=== PATIENT | female | born 1950 | race Caucasian/White ===

== ENCOUNTER 2022-11-27 04:49 | Outpatient (CLI) | payer MEDICARE, MEDICAID, SELFPAY | END 2022-11-27 04:50 | disposition home or self-care (01) | LOC: AMB 12-04 16:00 | PROVIDERS: PCP Family Medicine; Visit Provider Emergency Medicine | DX: R07.89 Other chest pain (principal) | CPT/HCPCS: A0425; A0427 ==

== ENCOUNTER 2024-03-15 23:05 | Emergency (ER) | payer MEDICARE, MEDICAID, SELFPAY ==
[2024-03-15 23:05] VITALS: BP 128/70; PULSE 75; RESP 20; TEMP 36.1; O2SAT 96; BMI 46.3
--- NOTE | 2024-03-15 23:16 | CRLHL7_ITS ---
For Patients: As a result of the Century Cures Act, medical imaging exams and procedure reports are released immediately into your electronic medical record. You may view this report before your referring provider. If you have questions, please contact your health care provider. INDICATION: Head injury from Fall TECHNIQUE: CT Head without i.v. contrast. Coronal and sagittal reformats were obtained. COMPARISON: None FINDINGS: CSF space: Unremarkable for age. Brain: No evidence of mass, acute infarction or hemorrhage is seen. No mass-effect or midline shift is seen. Mild diffuse cortical atrophy is noted. The brain parenchyma is otherwise normal in appearance with preservation of the alva-white matter junction. Calvarium: The visualized paranasal sinuses are well aerated. The mastoid air cells are clear. The visualized orbits are grossly unremarkable. The calvarium is unremarkable in appearance with no fractures identified. IMPRESSION: 1. No evidence of acute infarction, intracranial hemorrhage, or mass-effect seen. Please note that all CT scans at this facility use dose modulation, iterative reconstruction, and/or weight-based dosing when appropriate to reduce radiation dose to as low as reasonably achievable. Dictated by: Valentín Wharton MD @ 03/15/2024 23:53:36 (Electronically Signed)
--- NOTE | 2024-03-15 23:16 | CRLHL7_ITS ---
For Patients: As a result of the Century Cures Act, medical imaging exams and procedure reports are released immediately into your electronic medical record. You may view this report before your referring provider. If you have questions, please contact your health care provider. Indication: Fall Technique: Frontal view of the pelvis and two views of the right hip Comparison: None Findings/Impression: No acute radiographic abnormality appreciated. Dictated by Tello Rader MD @ 03/15/2024 11:53:02 PM (Electronically Signed)
--- NOTE | 2024-03-15 23:16 | CRLHL7_ITS ---
For Patients: As a result of the Century Cures Act, medical imaging exams and procedure reports are released immediately into your electronic medical record. You may view this report before your referring provider. If you have questions, please contact your health care provider. INDICATION: Fall. TECHNIQUE: Noncontrast CT images of the cervical spine. COMPARISON: None. FINDINGS: Postsurgical changes of solid anterior fusion from C3 through C6. Cervical lordosis is maintained. Mild rightward cervical curvature. No acute fracture or traumatic subluxation. Grade 1 anterolisthesis of C6 on C7 and C7 on T1. Multilevel facet arthropathy. No spinal canal or neural foraminal stenosis. No concerning opacities in the lung apices. IMPRESSION: 1. No acute fracture or traumatic subluxation. 2. Postsurgical changes of solid anterior fusion from C3 through C6. Please note that all CT scans at this facility use dose modulation, iterative reconstruction, and/or weight-based dosing when appropriate to reduce radiation dose to as low as reasonably achievable. Dictated by Sarmad Curran MD @ 03/16/2024 8:22:16 AM (Electronically Signed)
--- NOTE | 2024-03-15 23:17 | ED_ITS ---
HPI - General Adult General Chief complaint: Fall/Minor Trauma Stated complaint: Fall Time Seen by Provider: 03/15/24 23:09 History of Present Illness HPI narrative: This 73-year-old female comes in by ambulance and a trauma team activation is initiated. She fell from standing night at home and believes that she fell into a table and then to the floor. She states that she did hit her head and thinks that she did lose consciousness. She is complaining of some head and neck pain and pain in her right hip region. She was unable to get up without help but did so with help and was able to bear weight. Related Data Allergies Allergy/AdvReac Type Severity Reaction Status Date / Time camphor (From [facility]oger Vaporub) Allergy Severe Seizure Verified 03/16/24 00:01 ethinyl estradiol (From Allergy Severe Verified 03/16/24 00:01 Seasonale (91)) eucalyptus (From Vicks Allergy Severe Seizure Verified 03/16/24 00:01 Vaporub) levonorgestrel (From Allergy Severe Verified 03/16/24 00:01 Seasonale (91)) menthol (From [facility] Vaporub) Allergy Severe Seizure Verified 03/16/24 00:01 petrolatum,white (From Vicks Allergy Severe Seizure Verified 03/16/24 00:01 Vaporub) turpentine oil (From Vicks Allergy Severe Seizure Verified 03/16/24 00:01 Vaporub) dobutamine Allergy Mild Gastrointestinal Verified 03/16/24 00:01 Upset erythromycin base Allergy Mild Rash Verified 03/16/24 00:01 gadopentetic acid (From Allergy Mild Rash Verified 03/16/24 00:01 Magnevist) Iodinated Contrast Media Allergy Mild Rash Verified 03/16/24 00:01 Latex, Natural Rubber Allergy Mild Rash Verified 03/16/24 00:01 NSAIDS (Non-Steroidal Allergy Mild bariatric Verified 03/16/24 00:01 Anti-Inflamma surgery oxcarbazepine Allergy Mild Confusion Verified 03/16/24 00:01 theophylline Allergy Mild Headache Verified 03/16/24 00:01 zoster vaccine live Allergy Mild Rash Verified 03/16/24 00:01 fructose Allergy Unknown Verified 03/16/24 00:01 adhesive tape AdvReac Mild Rash Verified 03/16/24 00:01 diatrizoate sodium AdvReac Mild Rash Verified 03/16/24 00:01 rosuvastatin AdvReac Mild Nightmare Verified 03/16/24 00:01 perfume AdvReac Unknown asthma Verified 03/16/24 00:01 Review of Systems Status of ROS: Reports: 10 or more systems reviewed and unremarkable except as noted in History and below Narrative: Constitutional: No fevers, no weight gain or loss. Eyes: No discharge. No vision changes. HENT: No congestion, no sore throat, no ear pain. Cardiovascular: No chest pain, no palpitations. Respiratory: No shortness of breath, no wheezes, no cough. Gastrointestinal: No abdominal pain, no vomiting, no diarrhea. Genitourinary: No dysuria, no hematuria. Musculoskeletal: Right hip pain. Headache and neck pain. Skin: No rashes, no pruritis. Neurological: No dizziness, weakness, sensory change, speech change. Endo/Heme/Allergies: No bruising or bleeding. No polydipsia. Pysch: no suicidality, no anxiety, no insomnia. All other systems reviewed and are negative. [facility] Medical History (Updated 03/16/24 @ 00:38 by Jone Lopez MD) Urinary, incontinence, stress female ?N39.3 - Stress incontinence (female) (male) (ICD-10) Syncope and collapse ?R55 - Syncope and collapse (ICD-10) Seizure disorder ?G40.909 - Epilepsy, unspecified, not intractable, without status epilepticus (ICD-10) NSTEMI (non-ST elevated myocardial infarction) ?I21.4 - Non-ST elevation (NSTEMI) myocardial infarction (ICD-10) Neuropathy ?G62.9 - Polyneuropathy, unspecified (ICD-10) Mitral incompetence ?I34.0 - Nonrheumatic mitral (valve) insufficiency (ICD-10) Elevated LFTs ?R79.89 - Other specified abnormal findings of blood chemistry (ICD-10) Fibromyalgia ?M79.7 - Fibromyalgia (ICD-10) Edema of extremities ?R60.0 - Localized edema (ICD-10) CTS (carpal tunnel syndrome) ?G56.00 - Carpal tunnel syndrome, unspecified upper limb (ICD-10) Conversion disorder ?F44.9 - Dissociative and conversion disorder, unspecified (ICD-10) Complicated UTI (urinary tract infection) ?N39.0 - Urinary tract infection, site not specified (ICD-10) Anxiety ?F41.9 - Anxiety disorder, unspecified (ICD-10) On home O2 ?Z99.81 - Dependence on supplemental oxygen (ICD-10) Asthma ?J45.909 - Unspecified asthma, uncomplicated (ICD-10) Esophageal reflux ?K21.9 - Gastro-esophageal reflux disease without esophagitis (ICD-10) Herniation of cervical intervertebral disc ?M50.20 - Other cervical disc displacement, unspecified cervical region (ICD- 10) CAD (coronary artery disease) ?I25.10 - Atherosclerotic heart disease of poarch coronary artery without angina pectoris (ICD-10) Nocturnal epilepsy ?G40.909 - Epilepsy, unspecified, not intractable, without status epilepticus (ICD-10) Hypertension ?I10 - Essential (primary) hypertension (ICD-10) Parkinson disease ?G20.A1 - Parkinson's disease without dyskinesia, without mention of fluctuations (ICD-10) Osteopenia ?M85.80 - Other specified disorders of bone density and structure, unspecified site (ICD-10) Vitamin B 12 deficiency ?E53.8 - Deficiency of other specified B group vitamins (ICD-10) Achlorhydria ?K31.83 - Achlorhydria (ICD-10) Moderate episode of recurrent major depressive disorder ?F33.1 - Major depressive disorder, recurrent, moderate (ICD-10) Allergic rhinitis ?J30.9 - Allergic rhinitis, unspecified (ICD-10) Vocal cord dysfunction ?J38.3 - Other diseases of vocal cords (ICD-10) Asymmetric SNHL (sensorineural hearing loss) ?H90.3 - Sensorineural hearing loss, bilateral (ICD-10) RLS (restless legs syndrome) ?G25.81 - Restless legs syndrome (ICD-10) Chronic pain of both shoulders ?M25.511 - Pain in right shoulder (ICD-10) ?M25.512 - Pain in left shoulder (ICD-10) ?G89.29 - Other chronic pain (ICD-10) Stable angina pectoris ?I20.89 - Other forms of angina pectoris (ICD-10) Chronic respiratory failure with hypoxia ?J96.11 - Chronic respiratory failure with hypoxia (ICD-10) Refusal of blood transfusion for reasons of conscience ?Z53.1 - Procedure and treatment not carried out because of patient's decision for reasons of belief and group pressure (ICD-10) Generalized anxiety disorder ?F41.1 - Generalized anxiety disorder (ICD-10) PSVT (paroxysmal supraventricular tachycardia) ?I47.10 - Supraventricular tachycardia, unspecified (ICD-10) Heartburn ?R12 - Heartburn (ICD-10) Chronic diarrhea ?K52.9 - Noninfective gastroenteritis and colitis, unspecified (ICD-10) COPD (chronic obstructive pulmonary disease) ?J44.9 - Chronic obstructive pulmonary disease, unspecified (ICD-10) Acute on chronic diastolic (congestive) heart failure ?I50.33 - Acute on chronic diastolic (congestive) heart failure (ICD-10) Severe persistent asthma with acute exacerbation ?J45.51 - Severe persistent asthma with (acute) exacerbation (ICD-10) Controlled type 2 diabetes mellitus without complication, with long-term current use of insulin ?E11.9 - Type 2 diabetes mellitus without complications (ICD-10) ?Z79.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 (ICD-10) Lung nodule seen on imaging study ?R91.1 - Solitary pulmonary nodule (ICD-10) Intractable migraine without status migrainosus ?G43.919 - Migraine, unspecified, intractable, without status migrainosus (ICD-10) BOB (obstructive sleep apnea) ?G47.33 - Obstructive sleep apnea (adult) (pediatric) (ICD-10) Osteoarthritis ?M19.90 - Unspecified osteoarthritis, unspecified site (ICD-10) Frequent falls ?R29.6 - Repeated falls (ICD-10) Weakness ?R53.1 - Weakness (ICD-10) Encephalopathy ?G93.40 - Encephalopathy, unspecified (ICD-10) Surgical History (Updated 03/16/24 @ 00:33 by Birdie Nichols RN) Hx of tubal ligation ?Z98.51 - Tubal ligation status (ICD-10) S/P total abdominal hysterectomy ?Z90.710 - Acquired absence of both cervix and uterus (ICD-10) Hx of tonsillectomy ?Z90.89 - Acquired absence of other organs (ICD-10) Status post creation of urethral sling by suprapubic approach ?Z98.890 - Other specified postprocedural states (ICD-10) H/O dilation and curettage ?Z98.890 - Other specified postprocedural states (ICD-10) History of coronary artery stent placement ?Z95.5 - Presence of coronary angioplasty implant and graft (ICD-10) H/O cervical discectomy ?Z98.890 - Other specified postprocedural states (ICD-10) History of carpal tunnel release ?Z98.890 - Other specified postprocedural states (ICD-10) H/O adenoidectomy ?Z90.89 - Acquired absence of other organs (ICD-10) History of Andrea-en-Y gastric bypass ?Z98.84 - Bariatric surgery status (ICD-10) History of cholecystectomy ?Z90.49 - Acquired absence of other specified parts of digestive tract (ICD- 10) Exam Narrative: Exam Narrative: Primary Survey: Vital Signs are within normal limits. Airway: Open. Breathing: Easy. Circulation: no obvious bleeding; normal capillary refill. Disability: GCS is 15. Normal pupillary response and motor movements. Secondary Survey: Head: Normocephalic. She reports headache. Neck: No midline tenderness. ROM intact. Pain seems to be worse on the right side of her neck. Chest: Non tender. No external signs of trauma. Abdomen: Non tender. No rebound tenderness. Normal bowel sounds. Pelvis/Genitals: No tenderness to A/P and lateral stress. No blood at the urethral meatus. Extremities: Atraumatic. She is able to raise each leg from the bed but does so with some difficulty and pain. Back: No midline tenderness. No sign of injury. Primary and Secondary surveys are completed. The patient's GCS is 15. Const: Vital Signs, click to edit/add: Vital Signs - 24 hr 03/15/24 23:05 Temperature 96.9 F L Pulse Rate [Right Pulse Oximeter] 75 Respiratory Rate 20 Blood Pressure [Le ft Forearm] 128/70 Pulse Oximetry 96 Oxygen Delivery Me thod Room Air Course Vital Signs Vital signs: Initial Vital Signs Temperature 96.9 F L 03/15/24 23:05 Temperature Source Temporal Artery Scan 03/15/24 23:05 Pulse Rate 75 03/15/24 23:05 Respiratory Rate 20 03/15/24 23:05 Blood Pressure 128/70 03/15/24 23:05 Blood Pressure Mean 89 03/15/24 23:05 Blood Pressure Position Supine 03/15/24 23:05 Pulse Oximetry 96 03/15/24 23:05 Oxygen Delivery Method Room Air 03/15/24 23:05 Vital Signs Temperature 96.9 F L 03/15/24 23:05 Pulse Rate 75 03/15/24 23:05 Respiratory Rate 20 03/15/24 23:05 Blood Pressure 128/70 03/15/24 23:05 Pulse Oximetry 96 03/15/24 23:05 Oxygen Delivery Method Room Air 03/15/24 23:05 Temperature 96.9 F L 03/15/24 23:05 Pulse Rate 75 03/15/24 23:05 Respiratory Rate 20 03/15/24 23:05 Blood Pressure 128/70 03/15/24 23:05 Pulse Oximetry 96 03/15/24 23:05 Oxygen Delivery Method Room Air 03/15/24 23:05 Medical Decision Making MDM Narrative Medical decision making narrative: This patient comes in for evaluation of a fall that occurred at home from standing height. She thinks that she may have lost consciousness. She does take Plavix. She is on a lot of medicines and has lots of diagnoses in her past medical history. She is reporting some pain in her head and right side of her neck. She also reports some pain in her right hip but she was able to bear weight prior to arrival. X-ray images of the hip show no acute findings. Additionally CT scan of the head and C-spine by my review and according to radiology report show no acute findings. The patient did receive an IV dose of Dilaudid with Zofran and is okay to be discharged home if she is able to get up and ambulate. Her has arrived and states that he has a scooter that she can use. Lab Data Labs: Lab Results 03/15/24 Range/Units 23:25 SARS-CoV-2 (PCR) Negative SARS-CoV-2 (Negative) Influenza Type A (PCR) Negative PCR FLU A (Negative) Influenza Type B (PCR) Negative PCR FLU B (Negative) RSV (PCR) Negative PCR RSV (Negative) Imaging Data CT scan - head: Radiologist's impression: No evidence of acute infarction, intracranial hemorrhage, or mass-effect seen. XR Hip: Radiologist's impression: No acute radiographic abnormality appreciated. ECG Data Attestation: I personally reviewed and interpreted this ECG as follows: Interpretation: Normal sinus rhythm. Rate is 62 beats per minute. There are no ST or T-wave abnormalities. Discharge Plan Discharge Clinical Impression: Fall, Contusion of multiple sites Patient Disposition: Home w/ Parent or Adult Condition: Stable Additional Instructions: Increase activity as tolerated. Continue current medications. Follow up with MD return if worsening. Follow Up/Referrals: Mary Tao MD [Primary Care Provider] - Stand Alone Forms: [employer] Info Instructions
--- OUTSIDE RECORDS SUMMARY | 2024-03-15 23:53 | XMS_ITS | Clinical Summary ---
Author Organization [facility] Address [address] [place] [address]. [place] [address] Care Team Providers Care Presentation Specialist Name Role Phone Dirk BessyD Unavailable [phone] Mary Tao MD Primary Care Provider Amy Zaragoza PA-C Unavailable Allergies Active Allergy Reactions Criticality Noted Date Comments Adhesive Tape Rash Low 07/31/2006 Ampicillin Rash Low 07/31/2006 Tolerates cefazolin Buspirone Unknown,Other (See Comments) High 05/22/2017 Contrast Dye Rash Low 07/31/2006 Noted reaction to IV contrast dyes. Patient reports okay with premedication Diatrizoate Rash Low 07/17/2008 Note, has tolerated ORAL Gastroview. Noted reaction to IV contrast dyes. Patient reports okay with premedication. Dobutamine 07/31/2006 Other reaction(s): Nausea And Vomiting, Other - Describe In Comment Field Heart beat dropped too fast. Erythromycin Rash Low 07/31/2006 Gadopentetate Rash Low 07/17/2008 Noted reaction to IV contrast dyes. Patient reports okay with premedication Latex 07/31/2006 Other reaction(s): Contact Dermatitis, Rash Levonorgestrel-Ethinyl Estrad 05/13/2017 Other reaction(s): Respiratory Distress Liquid Adhesive 11/17/2012 Other reaction(s): Contact Dermatitis Medication patches No Clinical Screening - See Comments Hives 07/31/2006 Megavist Theophylin - headache Nsaids Other (See Comments) 12/21/2015 Patient had bariatric surgery. Should not ever take NSAIDS due to high risk for gastric ulcers. Perfume Other (See Comments) 10/19/2013 Perfume, lotions - aggravates asthma Theophylline 01/22/2009 Other reaction(s): Headache Medications albuterol (PROAIR HFA/PROVENTIL HFA/VENTOLIN HFA) 108 (90 Base) MCG/ACT inhaler Inhale 2 puffs into the lungs every 4 hours as needed 09/24/19 17 Active NONFORMULARY Disposable diaper 02/17/20 18 Active acetaminophen (TYLENOL) 500 MG tablet Take 1,000 mg by mouth every 6 hours as needed 02/15/20 18 Active isosorbide mononitrate (IMDUR) 30 MG 24 hr tablet Take 60 mg by mouth 04/02/19 18 Active nitroGLYcerin (NITROSTAT) 0.[address] 0.4 mg under the tongue 05/17/19 18 Active busPIRone (BUSPAR) 10 MG tablet TAKE ONE TABLET BY MOUTH THREE TIMES A DAY 2 05/14/19 18 Active LORazepam (ATIVAN) 0.5 MG tablet Take one tablet twice daily as needed, can occasionally use a third dose 02/16/20 18 Active ARNUITY ELLIPTA 100 MCG/ACT inhaler INHALE ONE PUFF BY MOUTH EVERY DAY 11 12/16/19 18 Active FLOVENT HFA 220 MCG/ACT inhaler INHALE 2 PUFFS BY MOUTH TWO TIMES A DAY 11 08/29/19 18 Active fluticasone-salme terol (ADVAIR) 500-50 MCG/DOSE inhaler Inhale 1 puff into the lungs Inhale 1 puff into the lungs 12/24/19 18 Active ADVAIR DISKUS 500-50 MCG/DOSE inhaler INHALE ONE PUFF BY MOUTH EVERY 12 HOURS 11 12/25/19 18 Active ipratropium - albuterol 0.5 mg/2.5 mg/3 mL (DUONEB) 0.5-2.5 (3) MG/3ML neb solution Inhale 3 mLs into the lungs Inhale 3 mLs into the lungs 12/31/19 18 Active montelukast (SINGULAIR) 10 MG tablet Take 10 mg by mouth At Bedtime 11/05/19 18 Active benzonatate (TESSALON) 100 MG capsule Take 100 mg by mouth 10/27/19 18 Active VOLTAREN 1 % topical gel APPLY 2 GRAMS FOUR TIMES A DAY NEEDED FOR PAIN IN SHOULDER 0 06/18/19 18 Active mupirocin (BACTROBAN) 2 % external ointment APPLY TO AFFECTED AREA(S) THREE TIMES A DAy 0 10/22/19 18 Active cholecalciferol 125 MCG (5000 UT) CAPS Take 5,000 Units by mouth 04/07/19 18 Active omeprazole (PRILOSEC) [address] capsule TAKE ONE CAPSULE BY MOUTH EVERY DAY BEFORE A MEAL (MAY OPEN AND SPRINKLE ON JELL-O) 2 01/23/20 18 Active tiZANidine (ZANAFLEX) 2 MG tablet Take 2 mg by mouth nightly as needed Take 2 mg by mouth nightly as needed 5 01/31/20 18 Active tiZANidine (ZANAFLEX) 2 MG tablet Take 2 mg by mouth 01/29/20 18 Active RESTASIS 0.05 % ophthalmic emulsion PLACE ONE DROP IN BOTH EYES TWO TIMES A DAY 3 01/09/20 18 Active cycloSPORINE (RESTASIS) 0.05 % ophthalmic emulsion PLACE ONE DROP IN BOTH EYES TWO TIMES A DAY 01/09/20 18 Active Pediatric Multivitamins-Iro n (POLY--MARGARITA/IRON PO) Take 2 tablets by mouth Take 2 tablets by mouth 03/28/19 17 Active potassium chloride ER (MICRO-K) 10 MEQ CR capsule TAKE ONE CAPSULE BY MOUTH EVERY DAY WITH A MEAL 2 12/24/19 18 Active Calcium Carb-Cholecalcife rol 600-800 MG-UNIT CHEW Take 1 tablet by mouth Active Cyanocobalamin (VITAMIN B-12) [address] 5,000 mcg under the tongue 12/08/19 18 Active torsemide (DEMADEX) 20 MG tablet TAKE TWO TABLETS BY MOUTH TWICE A DAY 2 01/15/20 18 Active spironolactone (ALDACTONE) 50 MG tablet Take 50 mg by mouth 07/09/19 18 Active furosemide (LASIX) 20 MG tablet 20 mg TAKE 4 TABLETS BY MOUTH EVERY MORNING 1 01/01/20 18 Active OXcarbazepine (TRILEPTAL) 150 MG tablet TAKE 3 TABLETS TWO TIMES A DAY 12 01/27/20 18 Active pregabalin (LYRICA) 300 MG capsule Take 300 mg by mouth 2 times daily 02/16/20 18 Active LYRICA 300 MG capsule TAKE ONE CAPSULE BY MOUTH TWICE A DAY 5 01/20/20 18 Active buPROPion (WELLBUTRIN XL) 150 MG 24 hr tablet Take 300 mg by mouth every morning 01/01/20 18 Active DULoxetine (CYMBALTA) 60 MG capsule Take 120 mg by mouth 02/16/20 18 Active cetirizine (ZYRTEC) 10 MG tablet Take 10 mg by mouth Active atorvastatin (LIPITOR) 40 MG tablet Take 40 mg by mouth 12/02/19 18 Active pramipexole (MIRAPEX) 0.5 MG tablet TAKE TWO TABLETS BY MOUTH THREE TIMES A DAY 11 01/05/20 18 Active Respiratory Therapy Supplies (CARETOUCH CPAP & BIPAP HOSE) [facility] BIPAP machine for home use at pressure: 16/5 , nasal mask x1/3month with nasal cushion x2/mo w/2 liters oxygen bled in. Length of Need: 99 months; Frequency of use: Daily 08/29/19 21 Active clotrimazole (LOTRIMIN) 1 % external cream Activ e Acidophilus Lactobacillus CAPS Take 1 capsule by mouth daily Active clopidogrel (PLAVIX) 75 MG tablet Take 75 mg by mouth daily Active methylPREDNISolon e (MEDROL) 32 MG tabletIndications :Contrast media allergy Take 1 tab 12 hrs before procedure and take 1 tab 2 hrs before procedure 2 tablet 12/06/19 23 Active diphenhydrAMINE (BENADRYL) 50 MG capsuleIndication s:Contrast media allergy Take 1 cap 1 hr before procedure 1 capsule 12/06/19 23 Active Active Problems Problem Noted Date Diagnosed Date Opioid dependence 02/10/2018 Primary osteoarthritis of left knee 02/10/2018 Restless legs syndrome (RLS) 02/10/2018 Chronic respiratory failure, unsp w hypoxia or h ypercapnia 02/03/2018 Asymmetric SNHL (sensorineural hearing loss) Pneumonia due to infectious organism 05/13/2017 Chronic diastolic CHF (conge stive heart failure), NYHA class 3 04/02/2017 Allergic rhinitis due to allergen 03/24/2017 Overview (02/19/2018): Overview: Skin Prick Testing was performed on: 03/24/2017 Sensitive to: Dogs, Trees, Weeds, Ragweed & Cockroach Vocal cord dysfunction 03/24/2017 Controlled substance agreement signed 03/17/2017 Overview (02/19/2018): Overview: 12/30/16 signed .Angelica Mcbride DNP, INFORMATION ASSURANCE SPECIALIST, PLANNING INTERN/psychiatry/hc Moderate episode of recurrent major depressive d isorder 12/30/2016 Emesis, persistent 02/29/2016 Achlorhydria 12/21/2015 Vitamin B 12 deficiency 12/21/2015 Bariatric surgery status 12/19/2015 Overview (02/19/2018): Overview: Dr. 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 Dietary counseling and surveillance 06/22/2015 Vitamin D deficiency 06/22/2015 Osteopenia determined by x-ray 05/29/2015 Overview (02/19/2018): Overview: Dx 2011 Morbid obesity 05/10/2015 Morbid obesity with BMI of 45.0-49.9, adult 05/2015 Overview (02/19/2018): Overview: BMI 46.5 Bilateral low back pain without sciatica 015 Chronic pain disorder 10/28/2014 Elevated LFTs 10/28/2014 Syncope and collapse 10/28/2014 Pain medication agreement 09/19/2014 Overview (02/19/2018): Overview: Verbal Order per Destiney Swanson, PLANNING INTERN, Read Back Serum creatinine raised 05/30/2014 Overview (02/19/2018): Overview: Cr jumped from baseline of 0.9 to 1.49 d/t metolazone tx for LLE Edema of extremities 04/21/2014 Stridor 04/19/2014 Overview (02/19/2018): Overview: Factitious Adenomatous colon polyp 03/27/2014 Overview (02/19/2018): Overview: Colonoscopy polyps repeat in 5 years Parkinson's disease 11/15/2013 Overview (02/19/2018): Overview: Per Dr. Sanchez, October, Hypertension 09/05/2013 Personal history of tobacco use, presenting hazards to health 09/05/2013 Depressive disorder 08/31/2013 Osteoarthrosis 07/20/2013 Overview (02/19/2018): Overview: Left knee ACP (advance care planning) 04/28/2013 Overview (02/19/2018): Overview: Formatting of this note may be different from the original. Patient has identified Health Care Agent(s): Yes Add Health Care Agents: Yes Health Care Agent(s): Primary Health Care Agent: Raúl Early Relationship: Secondary Health Care Agent: Relationship: Phone: Conservator: Relationship: Phone: Guardian: Relationship: Phone: Patient has Advance Care Plan Documents (Health Care Directive, POLST): No, referral made to Social Work Services. Patient has identified Specific Treatment Preferences: Yes Specific Treatment Preferences: a.) Code Status: CPR/Attempt Resuscitation Nocturnal epilepsy 06/29/2012 Conversion disorder 12/18/2010 Obstructive sleep apnea 07/26/2010 Coronary atherosclerosis 01/28/2010 Overview (02/19/2018): Overview: - 01/27/10 Angio: s/p BAILEY to distal RCA. 50% mLAD, 50% mcirc, 40% pRCA, 95% dRCA - 06/06/10 Angio: s/p BAILEY to circ (80%), mild to moderate LAD stenosis, patent RCA stent -CT angiogram 07/08/10: Patent circumflex and RCA stents -Lexiscan myoview 07/09/10: small area of mild to moderate ischemia in the apical anterior wall and apex. EF 65%. -Angiogram 07/10/10: Patent proximal circumflex and patent distal dominant RCA stents. EF 65%. -Lexiscan myoview 10/15/11: Small area ischemia anterior apical segment, EF 65% -Coronary angiogram 03/27/2014 - No significant change in coronary angiography since last study, mild to moderate coronary disease. No high grade coronary lesions. Stents are patent Hyperlipidemia 01/28/2010 Anxiety 08/01/2009 Pseudoseizure 08/01/2009 Overview (02/19/2018): Overview: - Diagnosed 2005 DJD (degenerative joint disease), lumbar 009 Herniation of cervical intervertebral disc 01/26 Overview (02/19/2018): Overview: C3-C6 , s/p anterior discectomy and fusion 01/26/2009 Gastroesophageal reflux disease without esophagi tis 07/31/2006 Family History Medical History Relation Comments Other - See Comments Father gun shot wo und Cancer Mother Heart Disease Sister 1 Heart Disease Sister 2 Hypertension Sister 3 Relation Status Comments Brother 1 Alive Brother 2 Alive Brother 3 Alive Brother 4 Alive Father Mother Sister 1 Sister 2 Sister 3 Alive Social History Tobacco Use Types Packs/Day Years Used Date Smoking Tobacco: Former Smokeless Tobacco: Never Tobacco Cessation:Counseling Given: Not Answered Alcohol Use Standard Drinks/Week Comments No 0 (1 standard drink = 0.6 oz pur e alcohol) AUDIT-C Answer Date Recorded Frequency of Alcohol Consumption Never 02/20/2018 Average Number of Drinks Not on file 018 Frequency of Binge Drinking Not on file 02/06 Adolescent Education Answer Date Record ed Getting School Help Needed Not on file 11/28 Comments No Sex and Gender Information Value Date Recorded Sex Assigned at Not on file Legal Sex Female 1:54 PM CAN CLOSING MACHINE OPERATOR Gender Identity Not on file Sexual Orientation Not on file Last Filed Vital Signs Vital Sign Reading Time Taken Comments Blood Pressure 153/76 11/25/2022 1:32 PM CDT Pulse 49 11/25/2022 1:32 PM CDT Temperature 36.2 C (97.1 F) 02/24/2022 12:30 PM CAN CLOSING MACHINE OPERATOR Respiratory Rate 16 02/24/2022 12:55 PM CAN CLOSING MACHINE OPERATOR Oxygen Saturation 97% 11/25/2022 1:32 PM CDT Inhaled Oxygen Concentration - - Weight 108.4 kg (239 lb) 11/25/2022 1:32 PM CDT Height 160 cm (5' 3) 11/25/2022 1:32 PM CDT Body Mass Index 42.34 11/25/2022 1:32 PM CDT Plan of Treatment Health Maintenance Due Date Last Done Comments ALT 1950 ANNUAL REVIEW OF HM ORDERS 1950 ASTHMA ACTION PLAN 1952 ASTHMA CONTROL TEST 1952 CONTROLLED SUBSTANCE AGREEMENT FOR CHRONIC PAIN MANAGEMENT 1952 CT COLONOGRAPHY 1952 DEPRESSION ACTION PLAN 1952 DEXA 1952 FIT 1952 FLEX SIG 1952 MIRYAM ASSESSMENT 1952 HF ACTION PLAN 1952 LIPID 1952 PHQ-9 1952 TSH W/FREE T4 REFLEX 1950 URINE DRUG SCREEN 1952 sDNA (Cologuard) 1950 HEPATITIS C SCREENING 1970 HEPATITIS A IMMUNIZATION (1 of 2 - Risk 2-dose series) 11/06/1971 RSV VACCINE (1 - Risk 60-74 years 1-dose series) 2012 FALL RISK ASSESSMENT 2017 ADVANCE CARE PLANNING 04/28/2018 04/28/2013 BMP 07/06/2022 01/06/2022, 04/26/2013 CBC 01/06/2023 01/06/2022, 04/26/2013 LUNG CANCER SCREENING 01/21/2023 01/21/2022 , 12/25/2021, 05/04/2020, Additional history exists MEDICARE ANNUAL WELLNESS VISIT 07/16/2023 07/15/2022, 06/13/2021, 02/15/2020 COVID-19 Vaccine ( season) 2023 01/29/2022, 06/19/2021, 01/03/2021, Additional history exists INFLUENZA VACCINE (#1) 2023 , 11/22/2020, 12/30/2019, Additional history exists MAMMO SCREENING 07/15/2024 07/15/2022, 04/0 09/2021, 12/09/2017, Additional history exists COLONOSCOPY 02/24/2025 02/24/2022, 02/24/2022 COLORECTAL CANCER SCREENING 02/24/2025 GLUCOSE 02/24/2025 02/24/2022, 02/06, 01/06/2022, Additional history exists DTAP/TDAP/TD IMMUNIZATION (3 - Td or Tdap) 02/12/2029 02/12/2019, 01/20/2008, 07/21/1997 Pneumococcal Vaccine: 50+ Years Completed 01/13/2019, 02/03/2018, 11/18/2012, Additional history exists ZOSTER IMMUNIZATION Completed 08/18/2019, 9 HPV IMMUNIZATION Aged Out No longer e ligible based on patient's age to complete this topic MENINGITIS IMMUNIZATION Aged Out No l onger eligible based on patient's age to complete this topic RSV MONOCLONAL ANTIBODY Aged Out No l onger eligible based on patient's age to complete this topic Procedures Procedure Name Priority Date/Time Associated Diagnosis Comments COLONOSCOPY Routine 02/24/2022 10:47 AM CAN CLOSING MACHINE OPERATOR GLUCOSE BY METER Routine 02/24/2022 10:1 5 AM CAN CLOSING MACHINE OPERATOR CBC WITH PLATELETS & DIFFERENTIAL STAT 01/06/2022 5:25 PM CDT BASIC METABOLIC PANEL STAT 01/06/2022 5:25 PM CDT MAMMOGRAM - HIM SCAN Routine 12/09/2017 from Last 3 Months or Most Recently Relevant to Health Maintenance Results * COLONOSCOPY (02/24/2022 10:47 AM CAN CLOSING MACHINE OPERATOR) [facility] COLONOSCOPY [facility] Patient Name: Ana Early Procedure Date: 02/24/2022 10:47 AM Date of : 1950 Admit Type: Outpatient Age: 71 Gender: Female Attending MD: PURNIMA PINEDO MD Total Sedation Time: MAC sedation Instrument Name: 219 - Pediatric Colonoscope Procedure: Colonoscopy Indications: Follow-up for history of adenomatous polyps in the colon, right-sided abdominal pain Providers: PURNIMA PINEDO MD (Doctor) Referring MD: Medicines: Monitored Anesthesia Care Complications: No immediate complications. Procedure: Pre-Anesthesia Assessment: - Prior to the procedure, a History and Physical was performed, and patient medications and allergies were reviewed. The patient is competent. The risks and benefits of the procedure and the sedation options and risks were discussed with the patient. All questions were answered and informed consent was obtained. Patient identification and proposed procedure were verified by the physician in the pre-procedure area. Mental Status Examination: alert and oriented. Airway Examination: normal oropharyngeal airway and neck mobility. Respiratory Examination: clear to auscultation. CV Examination: normal. Prophylactic Antibiotics: The patient does not require prophylactic antibiotics. Prior Anticoagulants: The patient has taken Plavix (clopidogrel), last dose was 7 days prior to procedure. ASA Grade Assessment: III - A patient with severe systemic disease. After reviewing the risks and benefits, the patient was deemed in satisfactory condition to undergo the procedure. The anesthesia plan was to use monitored anesthesia care (MAC). Immediately prior to administration of medications, the patient was re-assessed for adequacy to receive sedatives. The heart rate, respiratory rate, oxygen saturations, blood pressure, adequacy of pulmonary ventilation, and response to care were monitored throughout the procedure. The physical status of the patient was re-assessed after the procedure. After obtaining informed consent, the colonoscope was passed under direct vision. Throughout the procedure, the patient's blood pressure, pulse, and oxygen saturations were monitored continuously. The Olympus, Pediatric Colonoscope, Model # [id number]-H190DL, Endora # 219, SN # [id number] was introduced through the anus and advanced to the terminal ileum. The colonoscopy was performed without difficulty. The patient tolerated the procedure well. The quality of the bowel preparation was excellent. Findings: A 4 mm polyp was found in the ascending colon. The polyp was sessile. The polyp was removed with a cold snare. Resection and retrieval were complete. Two sessile polyps were found in the transverse colon. The polyps were 2 to 4 mm in size. These polyps were removed with a cold snare. Resection and retrieval were complete. Two sessile polyps were found in the rectum. The polyps were 3 mm in size. A few diverticula were found in the sigmoid colon. Impression: - One 4 mm polyp in the ascending colon, removed with a cold snare. Resected and retrieved. - Two 2 to 4 mm polyps in the transverse colon, removed with a cold snare and cold biopsy forceps. Resected and retrieved. - Two 3 mm polyps in the rectum. - Diverticulosis in the sigmoid colon. Recommendation: Repeat in three or five year depending on how many are adenomas. Restart Plavix. ____ PURNIMA PINEDO MD 02/24/2022 12:02:11 PM I was physically present for the entire viewing portion of the exam. PURNIMA PINEDO MD Number of Addenda: 0 Note Initiated On: 02/24/2022 10:47 AM Procedure Date: 02/24/2022 10:47:58 AM Scope Withdrawal Time: 0 hours 18 minutes 51 seconds Total Procedure Duration: 0 hours 31 minutes 32 seconds Estimated Blood Loss: Scope In: 11:14:04 AM Scope Out: 11:45:36 AM RADIOLOGY RESULTS 02/24/2022 10:4 7 AM CAN CLOSING MACHINE OPERATOR us Purnima Pinedo MD PROCEDURES Final Resu lt RADIOLOGY RESULTS * Glucose by meter (02/24/2022 10:15 AM CAN CLOSING MACHINE OPERATOR) GLUCOSE BY METER POCT 99 70 - 99 mg/dL 02/24/2022 10:23 AM CAN CLOSING MACHINE OPERATOR LABORATORY POC Blood, Capillary BLOOD SPECIMEN / Unknown 02/24/2022 10:15 AM CAN CLOSING MACHINE OPERATOR 02/24/2022 10:23 AM CAN CLOSING MACHINE OPERATOR Devon Floyd MD LAB - BEAKER POCT Final Re sult RH LABORATORY POC [facility] [address] Lab (1st floor, no room number) [place] [address], [facility] [phone] * (ABNORMAL) Basic metabolic panel (01/06/2022 5:25 PM CDT) Pathologist [facility] Sodium 137 136 - 145 mmol/L 01/06/2022 5:54 PM CDT LABORATORY Potassium 3.5 3.4 - 5.3 mmol/L 01/06/2022 5:54 PM CDT LABORATORY Chloride 100 98 - 107 mmol/L 01/06/2022 5:54 PM CDT LABORATORY Carbon Dioxide (CO2) 27 22 - 29 mmol/L 01/06/2022 5:54 PM CDT LABORATORY Anion Gap 10 7 - 15 mmol/L 01/06/2022 5:54 PM CDT LABORATORY Urea Nitrogen 9.0 8.0 - 23.0 mg/dL 01/06/2022 5:54 PM CDT LABORATORY Creatinine 0.64 0.51 - 0.95 mg/dL 01/06/2022 5:54 PM CDT LABORATORY Calcium 8.7(L) 8.8 - 10.2 mg/dL 01/06/2022 5:54 PM CDT LABORATORY Glucose 98 70 - 99 mg/dL 01/06/2022 5:54 PM CDT LABORATORY GFR Estimate >90 >60 mL/min/1.7 3m2 01/06/2022 5:54 PM CDT RH LABORATORY Comment:Effective February 072020 eGFRcr in adults is calculated using the 2020 CKD-EPI creatinine equation which includes age and gender (Lesley et al., NEJM, DOI: 10.1056/GEYMta1465898) Blood STRUCTURE OF LEFT UPPER LIMB / Unknown Venipuncture / Unknown 01/06/2022 5:25 PM CDT 01/06/2022 5:35 PM CDT Erick Flores MD LAB - BLOOD ORDERABLES F inal Result [facility] [address] Lab (1st floor, no room number) [place] [address], [facility] [phone] * Mammogram - HIM Scan (12/09/2017) Anatomical Region Laterality Modality Other Narrative 12/09/2017 Result Impression There is no radiographic evidence for malignancy. Recommend annual mammograms. A lay language report of this examination will be provided to the patient. MAMMOGRAM ASSESSMENT: ACR 2 Benign Other Result Information Result Narrative XR MAMMO BILAT SCREENING [[id number]] CLINICAL HISTORY: This is an asymptomatic 67 y.o. patient. INDICATION FOR EXAM: Mammogram Screening. TECHNIQUE: CC & MLO views were obtained. This digital study was evaluated with the assistance of Computer-Aided Detection. COMPARISON FILMS: Yes 07/10/16 [facility] 05/29/15 [facility] FINDINGS: Mammographically, the breast tissue is almost entirely fat. No suspicious masses or microcalcifications. Benign appearing calcifications within both breasts and Benign appearing asymmetry within left breast. us Provider Outside IMG MAMMOGRAPHY ORDERABLES Odalis l Result from Last 3 Months or Most Recently Relevant to Health Maintenance Insurance [facility] MEDICARE ADVANTAGE [id number] [facility] [address] [place] [address] [employer] Care Teams Presentation Specialist Relationship Specialty Start Date End Date Mary Tao MD [facility] [address] [place] [address] PCP - General Family Medicine 01/06/22 Dirk Bess PsyD [address] [place] [address] Referring Physician 02/01/18 Amy Zaragoza PA-C [address] [place], [place] [id number] Assigned Musculoskeletal Provider 04/02/23
--- OUTSIDE RECORDS SUMMARY | 2024-03-15 23:53 | XMS_ITS | Clinical Summary ---
Author Organization [facility] Address [place], [place] [address] Care Team Providers Care Member Services Coordinator Name Role Phone TomekaondSatinder curran MD Unavailable [phone] Trace Winn MD Unavailable Kvng Escalante MD Unavailable [phone] Ignacio Smith MD Unavailable [phone] Jose Virk MD Unavailable [phone] Christos Christianson MD Unavailable [phone] Jose Blackwood MD Unavailable Tomas Lazar MD Unavailable Aminah Fair MD Unavailable Dirk Farah MD Unavailable Michi Horn MD Unavailable Destiney Mckeon NP Primary Care Provider Allergies Active Allergy Reactions Criticality Noted Date Comments Adhesive Contact Dermatitis Low 11/17/2012 Medication patches Adhesive Tape Rash Low 07/31/2006 Adhesive Tape-Silicones Rash 02/07/2022 Ampicillin Rash Unknown 07/31/2006 Tolerates cefazolin Diatrizoate Allergen Rash Medium 07/17/2008 Note, has tolerated ORAL Gastroview. Noted reaction to IV contrast dyes. Patient reports okay with premedication. Dobutamine Nausea And Vomiting,Other - Describe In Comment Field Medium 07/31/2006 Heart beat dropped too fast. Erythromycin Rash Low 07/31/2006 Fructose (Bulk) *Unknown 07/14/2023 Iodinated Contrast Media Rash Low 07/31/2006 Noted reaction to IV contrast dyes. Patient reports okay with premedication Latex Rash,Contact Dermatitis Low 07/31/2006 Gadopentetate Dimeglumine Rash Low 07/17/2008 Noted reaction to IV contrast dyes. Patient reports okay with premedication Nsaids (Non-Steroidal Anti-Inflammatory Drug) Other - Describe In Comment Field Medium 12/21/2015 Patient had bariatric surgery. Should not ever take NSAIDS due to high risk for gastric ulcers. Unlisted Allergen (Include Detail In Comments) Hives Medium 07/31/2006 Megavist Theophylin - headache 2. Vicks vapor rub- seizures Oxcarbazepine Confusion High 09/27/2023 See [facility] admission from 09/2023 Perfume Oil Other - Describe In Comment Field Low 10/19/2013 Perfume, lotions - aggravates asthma Rosuvastatin Nightmares 01/06/2023 Levonorgestrel-Ethinyl Estrad Respiratory Distress Medium 05/13/2017 Theophylline Headache Low 01/22/2009 Zoster Vaccine Live Rash 09/02/2019 Medications blood-glucose meterIndications :New onset type 2 diabetes mellitus (HC) Dispense meter, test strips, lancets covered by pt ins. E11.9 NIDDM type II - Test 1 time/day 1 Device 08/04/19 21 Active blood sugar diagnostic (Accu-Chek Guide test strips) stripIndications :Well controlled type 2 diabetes mellitus (HC) Dispense item covered by pt ins. E11.9 NIDDM type II - Test 1 time/day 100 Each 01/30/20 22 Active vibegron (Gemtesa) 75 mg tabletIndication s:Overactive bladder Take 1 Tablet (75 mg) by mouth once daily. 30 Tablet 11 03/14/19 23 Active pramipexole (MIRAPEX) 1 mg tablet Take 3 mg by mouth at bedtime. 0 06/27/19 23 Active clopidogreL (PLAVIX) 75 mg tabletIndication s:Coronary artery disease, unspecified vessel or lesion type, unspecified whether angina present, unspecified whether [place] or transplanted heart Take 1 Tablet (75 mg) by mouth every morning. 90 Tablet 3 07/16/19 23 Active buPROPion (WELLBUTRIN XL) 300 mg Extended-Release tabletIndication s:Moderate episode of recurrent major depressive disorder (HC),Anxiety Take 1 Tablet (300 mg) by mouth once daily. 90 Tablet 1 02/10/20 23 Active BiPapIndications :BOB (obstructive sleep apnea) BIPAP machine for home use at pressure: BiPAP 21/10, rate 12 w/ 2 L oxygen bled in, full face mask x1/3month with a full face cushion x1/mo, lifetime length of need, daily use. 1 Each 11 04/03/19 24 Active potassium chloride (K-TAB) 20 mEq extended-release tabletIndication s:Chronic diastolic CHF (congestive heart failure), NYHA class 3 (HC) Take 40 mEq by mouth once daily. Take with 10 mEq for total of 50 mEq daily 04/06/19 24 Active albuterol-ipratr opium (DUONEB) (2.5-0.5 mg) in 3 mL NEBULIZATION solution Inhale 1 Neb via a nebulizer 4 times daily if needed. Active methyl salicylate-menth ol (Analgesic stacy Leonard-menth,) 15-10 % topical cream 4 times daily if needed (for both shoulders and bilateral biceps areas). Apply small amount to affected area(s) both shoulder and bilateral biceps topically four times daily as needed for pain Active cetirizine (ZYRTEC) 10 mg tablet Take 10 mg by mouth once daily. Active methenamine hippurate (HIPREX) 1 gram tablet Take 2 g by mouth at bedtime. Active torsemide (DEMADEX) 20 mg tabletIndication s:Hypertension, unspecified type Take 2 Tablets (40 mg) by mouth once daily. 60 Tablet 06/21/19 24 Active oxygen-air delivery systems (HOME OXYGEN)Indicatio ns:BOB (obstructive sleep apnea) Oxygen for home use. Liters per minute:3 per nasal cannula with activity and 3 liters with BiPAP at night. Frequency of use: Continuous with portability.;. Length of need: 99 Months. 06/25/19 24 Active lisinopriL (PRINIVIL; ZESTRIL) 2.5 mg tabletIndication s:Acute on chronic diastolic congestive heart failure (HC) TAKE ONE TABLET BY MOUTH EVERY DAY 30 Tablet 06/27/19 24 Active montelukast (SINGULAIR) 10 mg tabletIndication s:Wheezing TAKE ONE TABLET BY MOUTH AT BEDTIME 90 Tablet 3 07/01/19 24 Active nitroglycerin (NITROSTAT) 0.4 mg sublingual tabletIndication s:Stable angina pectoris (HC) Place 1 Tablet (0.4 mg) under the tongue every 5 minutes if needed for Chest Pain. Up to 3 tablets in 15 minutes. 25 Tablet 08/01/19 24 Active potassium chloride (KLOR-CON M10) 10 mEq extended-release tablet (part/cryst) Take 10 mEq by mouth once daily. Take with 40 mEq for total of 50 mEq daily. 08/06/19 24 Active acetaminophen (TYLENOL) 325 mg tabletIndication s:pain Take 650 mg by mouth every 4 hours if needed for Pain or Temp>101.5F (38.6C). Max acetaminophen dose: 3000mg in 24 hrs. 08/11/19 24 Active bisacodyL (DULCOLAX) 10 mg suppository Insert 10 mg rectally once daily if needed for Constipation (If no bowel movement or small bowel movements for 3 days). 08/11/19 24 Active miconazole nitrate powder (Desenex) 2 % powder Apply topically to affected area(s) 2 times daily if needed. 08/11/19 24 Active loperamide (IMODIUM) 2 mg capsuleIndicatio ns:Chronic diarrhea Take 4mg by mouth with 1st loose stool, then 2mg with each subsequent loose stool. Max 16 mg in 24 hrs 08/11/19 24 Active Milk of Magnesia 400 mg/5 mL suspension Take 30 mL by mouth once daily if needed for Constipation (If small bowel movement or no bowel movement for 3 days). 08/11/19 24 Active mupirocin (BACTROBAN) 2 % ointmentIndicati ons:Nasal crusting Apply to nares three times a day for next 2 months 30 g 09/15/19 24 Active cyanocobalamin (VITAMIN B12) 1,000 mcg/mL injection Inject 1,000 mcg intramuscular every 4 weeks. Active dimethicone/zinc oxide (ADELAIDA PROTECT TOP) Apply topically to affected area(s) each time if needed (Apply to stage 1 pressure area for irritated skin, rash, or excoriation). Active calcium carbonate (Calcium Antacid) 200 mg calcium (500 mg) chewable tablet Chew 500 mg by mouth 2 times daily if needed. Active neomycin-bacitra lillian-polymyxin (Triple Antibiotic) 3.5mg-400 unit-5,000 unit/gram ointment Apply topically to affected area(s) 3 times daily if needed (Minor abrasions, cover with bandaid or gauze). Active levETIRAcetam (KEPPRA) 250 mg tabletIndication s:Seizures (HC) Take 1 Tablet (250 mg) by mouth two times daily. 60 Tablet 1 4 4:21 PM CDT 09/27/19 24 Active fluticasone propion-salmeter oL (ADVAIR) 500-50 mcg/Dose diskus inhalerIndicatio ns:Asthma, unspecified asthma severity, unspecified whether complicated, unspecified whether persistent Inhale 1 Puff by mouth two times daily. Rinse mouth afterwards to prevent thrush/ mouth sores 09/29/19 24 Active isosorbide mononitrate (IMDUR) 60 mg extended release tablet 24 hour 10/01/19 24 Active azithromycin (ZITHROMAX) 250 mg tabletIndication s:Asthma, unspecified asthma severity, unspecified whether complicated, unspecified whether persistent TAKE 1 TABLET BY MOUTH ONCE DAILY 90 Tablet 11/04/19 24 Active predniSONE (DELTASONE) 5 mg tabletIndication s:Asthma, unspecified asthma severity, unspecified whether complicated, unspecified whether persistent TAKE 1 TABLET BY MOUTH ONCE DAILY WITH A MEAL 90 Tablet 11/04/19 24 Active nystatin (MYCOSTATIN) 100,000 unit/mL suspensionIndica tions:Oral thrush SWISH AND SWALLOW 1 TEASPOONFUL (5ML) BY MOUTH FOUR TIMES DAILY 473 mL 11/04/19 24 Active sodium chloride (MICHELLE-128) 5 % ophthalmic ointmentIndicati ons:Fuchs' corneal dystrophy of both eyes Apply a 1/4 inch strip to the inside lower eyelids every night before bed. 3.5 g 3 11/26/19 24 Active traMADoL (ULTRAM) 50 mg tablet Take 0.5 Tablets (25 mg) by mouth two times daily. 12/11/19 24 Active Graduated Compression StockingsIndicat ions:Leg swelling For personal use. Length: calf Strength: 16-20 mmHg 1 Packet 12/11/19 24 Active solifenacin (VESICARE) 10 mg tabletIndication s:Urinary incontinence, unspecified type Take 1 Tablet (10 mg) by mouth once daily. 90 Tablet 12/15/19 24 Active predniSONE (DELTASONE) 50 mg tab tabletIndication s:Contrast media allergy take 50 mg at 13 hours, 7 hours and 1 hour before contrast media injection. 3 Tablet 12/23/19 24 Active terbinafine (LamISIL AT) 1 % creamIndications :Rash Apply topically to affected area(s) two times daily. Until the rash is gone. 90 g 03/10/19 25 Active terbinafine (LamISIL AT) 1 % creamIndications :Rash Apply topically to affected area(s) two times daily. Until the rash is gone. 30 g 09/18/19 24 025 Discontin ued(Reord er (E-cancel not sent)) Active Problems Problem Noted Date Diagnosed Date Encephalopathy 09/26/2023 Weakness 09/25/2023 Frequent falls 09/25/2023 Osteoarthritis of left glenohumeral joint 2023 Osteoarthritis of right glenohumeral joint 08/12 BOB (obstructive sleep apnea) 07/14/2023 Acute back pain 05/04/2023 Radiculopathy, lumbosacral region 05/04/2023 Fall 04/16/2023 Intractable migraine without status migrainosus 04/09/2023 Lung nodule seen on imaging study 03/13/2023 Controlled type 2 diabetes m ellitus without complication, without long-term current use of insulin 03/13/2023 Severe persistent asthma with exacerbation 03/13 Acute on chronic diastolic CHF (congestive heart failure) 03/13/2023 COPD exacerbation 03/11/2023 Chronic diarrhea 06/17/2022 06/17/2022 Heartburn 06/17/2022 06/17/2022 Acute pyelonephritis 06/17/2022 Bilateral occipital neuralgia 04/29/2022 Paroxysmal SVT (supraventricular tachycardia) Body mass index (BMI) 40.0-44.9, adult 3 Generalized anxiety disorder 02/16/2022 Noninfectious gastroenteritis 12/30/2021 Controlled substance agreement signed 05/07/2021 Overview (05/07/2021): 04/16/21 Meg Corrales MD/psychiatry S/P cholecystectomy 12/09/2020 Refusal of blood transfusion s as patient is [employer] 08/11/2020 Disorder of iron metabolism, unspecified 021 COPD 10/18/2019 Chronic respiratory failure with hypoxia 020 Stable angina pectoris 04/14/2019 Chronic pain of both shoulders 04/13/2019 Overview (01/22/2020): April 2019: Bilateral GH joint injections under ultrasound guidance. September 2019 Bilateral GH joint injections under ultrasound guidance. Jan 2020: Left subacromial bursa injection. Hyperlipemia 02/10/2018 Gastroesophageal reflux disease without esophagi tis 02/10/2018 Restless legs syndrome (RLS) 02/10/2018 Asymmetric SNHL (sensorineural hearing loss) Chronic diastolic CHF (conge stive heart failure), NYHA class 3 04/02/2017 Vocal cord dysfunction 03/24/2017 Allergic rhinitis due to allergen 03/24/2017 Overview (03/24/2017): Skin Prick Testing was performed on: 03/24/2017 Sensitive to: Dogs, Trees, Weeds, Ragweed & Cockroach Moderate episode of recurrent major depressive d isorder 12/30/2016 Achlorhydria 12/21/2015 Vitamin B 12 deficiency 12/21/2015 laparoscopic asia-en-y gastric bypass 12/19/2015 Overview (12/19/2015): Dr. Coppola Vitamin D deficiency 06/22/2015 Osteopenia determined by x-ray 05/29/2015 Overview (05/29/2015): Dx 2012 Chronic pain disorder 10/28/2014 Bilateral low back pain without sciatica 015 Pain medication agreement 09/19/2014 Overview (09/19/2014): Verbal Order per Destiney Swanson CNP, Read Back Adenomatous colon polyp 03/27/2014 Overview (05/25/2019): Colonoscopy polyps repeat in 5 years Colonoscopy 05/2019 multiple polyps, repeat in 3 years Parkinson's disease 11/15/2013 Overview (11/15/2013): Per Dr. Sanchez, October, Personal history of tobacco use, presenting hazards to health 09/05/2013 Hypertension 09/05/2013 Depressive disorder 08/31/2013 Osteoarthritis 07/20/2013 Overview (07/20/2013): Left knee ACP (advance care planning) 04/28/2013 Overview (04/28/2013): Patient has identified Health Care Agent(s): Yes [...] Resuscitation Nocturnal epilepsy 06/29/2012 Conversion disorder 12/18/2010 BOB 07/21/2010 AHI-7 07/26/2010 CAD (coronary artery disease) 01/28/2010 Overview (04/18/2015): - 01/27/10 Angio: s/p BAILEY to distal [...] high grade coronary lesions. Stents are patent Anxiety 08/01/2009 Pseudoseizure 08/01/2009 Overview (06/05/2010): - Diagnosed 2005 DJD (degenerative joint disease), thoracic 03/06 DJD (degenerative joint disease), lumbar 009 Herniation of cervical intervertebral disc 01/26 Overview (01/26/2009): C3-C6 , s/p anterior discectomy and fusion 01/26/2009 Esophageal reflux 07/31/2006 Asthma 07/31/2006 Chronic, continuous use of opioids Resolved Problems Problem Noted Date Diagnosed Date Resolved Date Hypokalemia 04/10/2023 06/18/2023 Medication side effect, initial encounter 04/10/2023 06/18/2023 Acute on chronic diastolic c ongestive heart failure 03/11/2023 06/18/2023 Atypical chest pain 03/11/2023 06/18/19 24 Arthritis of right glenohumeral joint 02/24/2023 06/18/2023 Opioid dependence, uncomplicated 01/26/2023 03/13/2023 Other chest pain 11/27/2022 06/18/2023 Syncope, psychogenic 06/19/2022 024 Migraine 06/06/2022 06/18/2023 SWAIN (dyspnea on exertion) 04/29/2022 Bilateral leg edema 03/14/2022 06/18/19 24 Well controlled type 2 diabetes mellitus 03/14/2022 06/18/2023 Arthritis of carpometacarpal (CMC) joint of right thumb 05/07/2021 06/18/2023 Left carpal tunnel syndrome 04/16/2021 06/18/2023 Left forearm pain 04/16/2021 06/18/2023 Right carpal tunnel syndrome 04/16/2021 06/18/2023 New onset type 2 diabetes mellitus 03/15/2021 06/18/2023 Bilateral carpal tunnel syndrome 02/12/2021 06/18/2023 Polyarthralgia 02/12/2021 06/18/2023 Biloma following surgery 12/09/202001/2024 BOB (obstructive sleep apnea) 12/09/2020 06/18/2023 Chronic respiratory failure with hypoxia 12/03/2020 12/03/2020 Cholecystitis 11/28/2020 12/09/2020 Left hand pain 10/29/2020 11/27/2020 Arthritis of finger of left hand 10/29/2020 06/18/2023 Arthritis of carpometacarpal (CMC) joint of left thumb 10/29/2020 06/18/2023 Sprain of left wrist 10/29/2020 024 Dysarthria 08/12/2020 06/18/2023 Difficulty with speech 08/11/202012/09 Leg edema 03/29/2020 06/18/2023 Acute respiratory distress 03/26/2020 0 08/11/2020 Prediabetes 02/15/2020 06/18/2023 At risk for polypharmacy 08/03/201901/2024 Suspected COVID-19 virus infection 08/02/2019 12/09/2020 UTI (urinary tract infection) 08/02/2019 08/11/2020 Weakness 08/02/2019 11/27/2020 Decreased activities of daily living (ADL) 08/02/2019 06/18/2023 Hypokalemia 08/02/2019 11/27/2020 Chest pain 04/12/2019 11/27/2020 Prediabetes 03/16/2019 11/27/2020 COPD with acute exacerbation 06/01/2018 06/18/2023 Surgical aftercare, musculoskeletal system 02/23/2018 12/09/2020 Primary osteoarthritis of left knee 02/10/2018 06/18/2023 Opioid dependence 02/10/2018 07/02/2018 Hyperlipemia 02/10/2018 11/27/2020 Chronic respiratory failure, unsp w hypoxia or hypercapnia 02/03/2018 08/11/2020 Pneumonia due to infectious organism 05/13/2017 11/27/2020 Controlled substance agreement signed 03/17/2017 05/07/2021 Overview (03/17/2017): 12/30/16 signed .Angelica Mcbride DNP, MEDICAL RECORD LIBRARIAN, HOME INSURANCE AGENT/psychiatry/hc Controlled substance agreement signed 07/16/2016 11/11/2017 Overview (07/16/2016): Signed: 07/14/16 Dr. Kvng Escalante MD / psychiatry Peptic ulcer 02/29/2016 06/18/2023 Right-sided chest wall pain 11/26/2015 05/14/2017 Epigastric abdominal pain 11/26/2015 Dietary counseling and surveillance 06/22/2015 12/09/2020 Morbid obesity 05/10/2015 11/27/2020 Morbid obesity with BMI of 45.0-49.9, adult 05/10/2015 03/15/2021 Overview (02/10/2018): BMI 46.5 Syncope and collapse 10/28/2014 021 Elevated LFTs 10/28/2014 06/18/2023 Hypokalemia 06/02/2014 05/14/2017 SOB (shortness of breath) 05/30/2014 Serum creatinine raised 05/30/2014 10/05/2020 Overview (06/20/2014): Cr jumped from baseline of 0.9 to 1.49 d/t metolazone tx for LLE Edema of extremities 04/21/2014 024 Stridor 04/19/2014 12/09/2020 Overview (04/19/2014): Factitious BOB (obstructive sleep apnea) 04/19/2014 05/22/2017 Overview (04/19/2014): On CPAP Anxiety state, unspecified 05/20/2013 0 03/21/2014 Altered mental status 04/28/20132013 Chest pain 07/12/2012 04/28/2013 SWAIN (dyspnea on exertion) 02/06/2012 SOB (shortness of breath) 02/03/2012 Depressive disorder, not elsewhere classified 12/19/19 11 09/22/2012 Chest pain, unspecified 07/08/201004/10 Chest pain 06/05/2010 07/08/2010 Headache(784.0) 06/05/2010 04/28/2013 Hx of NSTEMI (non-ST elevate d myocardial infarction) 01/28/2010 06/30/2017 Hyperlipidemia 01/28/2010 11/27/2020 Chest pain 01/27/2010 04/21/2014 Overview (07/10/2010): Admitted 07/08/10 with CLEAR TO AUSCULTATION with patent stents but moderate disease and positive stress test with apical ischemia and coronary angiogram neg with no intervention and past stents patent. ? Etiology of pain ? Coronary artery spasm? Imdur started. Unspecified essential hypertension 07/31/2006 04/28/2013 Unspecified sleep apnea 07/31/200605/07 Unspecified iron deficiency anemia 07/31/2006 04/28/2013 Encounters Date Type Department Care Team Description 03/14/2024 2:10 PM CONTENT MANAGEMENT SPECIALIST - 03/14/2024 11:59 PM [facility] Hospital Encounter [address] [address] Che [place]daña PA Tierney, Doreen A, FIELD REPRESENTATIVE/HEALTH EDUCATION 03/14/2024 Travel 03/11/2024 10:00 AM CONTENT MANAGEMENT SPECIALIST - 03/11/2024 11:59 PM CONTENT MANAGEMENT SPECIALIST Hospital Encounter [address] [address] Che [place]daña [place] Tierney, Doreen A FIELD REPRESENTATIVE/HEALTH EDUCATION 03/10/2024 8:20 AM CONTENT MANAGEMENT SPECIALIST Office Visit [facility] [address] [place] [address] Mary Tao MD Medicare ANNUAL (subsequent) Visit (73 year old); ER Follow up 03/10/2024 Travel 03/08/2024 10:00 AM CONTENT MANAGEMENT SPECIALIST - 03/08/2024 11:59 PM CONTENT MANAGEMENT SPECIALIST Hospital Encounter [facility] [address] [place] [address] Che Saldaña PA Tierney, Doreen A, LISBETH 03/08/2024 Travel 03/06/2024 1:04 PM CONTENT MANAGEMENT SPECIALIST - 03/06/2024 2:26 PM CONTENT MANAGEMENT SPECIALIST Emergency [facility] [address] [place] [address] Leatha Cabrera PA Strain of left biceps muscle, initial encounter (Primary Dx) Discharge Disposition: Home Self Care 03/06/2024 Travel 02/24/2024 Telephone [facility] [address] [place] [address] Tori Pisano PA 02/23/2024 10:00 AM CONTENT MANAGEMENT SPECIALIST - 02/23/2024 11:59 PM CONTENT MANAGEMENT SPECIALIST Hospital Encounter [address] [address] [place] Tierney, Doreen A, LISBETH 02/23/2024 Travel 02/22/2024 Telephone [facility] [address] [facility] [place] [address] Mary Tao MD Error-please disregard 02/22/2024 Telephone [facility] [address] [place] [address] Tori Pisano PA 02/19/2024 1:03 PM CONTENT MANAGEMENT SPECIALIST - 02/19/2024 11:59 PM CONTENT MANAGEMENT SPECIALIST Hospital Encounter [address] [address] Che [place]ña [place] Tierney, Doreen A, LISBETH 02/18/2024 10:03 AM CONTENT MANAGEMENT SPECIALIST - 02/18/2024 11:59 PM CONTENT MANAGEMENT SPECIALIST Hospital Encounter [address] [address] Che [place]ña [place] Tierney, Doreen A, LISBETH 02/18/2024 Travel 02/15/2024 1:52 PM CONTENT MANAGEMENT SPECIALIST - 02/15/2024 11:59 PM CONTENT MANAGEMENT SPECIALIST Hospital Encounter [address] [address] Che [place]ña [place] Tierney, Doreen A, SLP 02/15/2024 Telephone [facility] [address] [place] [address] Mary Tao MD ACC Order Request (Thickened liquids) 02/15/2024 Travel 02/11/2024 1:34 PM CONTENT MANAGEMENT SPECIALIST - 02/11/2024 11:59 PM CONTENT MANAGEMENT SPECIALIST Hospital Encounter [address] [address] [place]ña [place] Tierney, Doreen A, SLP 02/11/2024 Travel 02/09/2024 10:10 AM CONTENT MANAGEMENT SPECIALIST - 02/09/2024 11:59 PM CONTENT MANAGEMENT SPECIALIST Hospital Encounter [address] [address] Che [place]ña [place] Tierney, Doreen A, LISBETH Dysphagia, unspecified type; Esophageal abrasion, initial encounter 02/09/2024 Travel 02/05/2024 Telephone [facility] [address] [place] [address] Mary Tao MD Follow Up (Returning call.) 01/30/2024 5:19 PM CONTENT MANAGEMENT SPECIALIST - 01/30/2024 8:13 PM CONTENT MANAGEMENT SPECIALIST Emergency [facility] [address] [place] [address] [place] PA Chronic pain of both shoulders (Primary Dx) Discharge Disposition: Home Self Care 01/30/2024 Travel 01/29/2024 1:35 PM CONTENT MANAGEMENT SPECIALIST - 01/29/2024 2:42 PM CONTENT MANAGEMENT SPECIALIST Emergency [facility] [address] [place] [address] Che Saldaña PA Dysphagia, unspecified type (Primary Dx); Esophageal abrasion, initial encounter Discharge Disposition: Home Self Care 01/29/2024 Travel 01/22/2024 Telephone [facility] [address] [facility] [place] [address] Mary Tao MD Results 01/21/2024 10:58 AM CONTENT MANAGEMENT SPECIALIST - 01/21/2024 11:59 PM CONTENT MANAGEMENT SPECIALIST Hospital Encounter [facility] [address] [place] [address] Christos Lindsay MD Hostetler, Lindsey M, FIELD REPRESENTATIVE/HEALTH EDUCATION 01/21/2024 Telephone [facility] [address] [place] [address] Mary Tao MD Error-please disregard 01/17/2024 2:48 PM CONTENT MANAGEMENT SPECIALIST - 01/17/2024 6:02 PM CONTENT MANAGEMENT SPECIALIST Emergency [facility] [address] [place] [address] Nuria Alvarez MD Chest pain, unspecified type (Primary Dx); Pulmonary nodule Discharge Disposition: Home Self Care 01/17/2024 Travel 12/30/2023 Telephone [facility] [place] [address] [place] [phone] Param Clements MD 12/25/2023 Telephone [facility] [address] [place] [address] Tori Pisano PA Questions 12/23/2023 Telephone [facility] [address] [place] [address] Tori Pisano PA Procedure 12/16/2023 Telephone [facility] [address] [place] [address] Tori Pisano PA 12/15/2023 11:40 AM CDT Office Visit [facility] [address] [place] [address] Tori Pisano PA Follow Up (Urinary urgency follow up) 12/15/2023 Telephone [facility] [address] [place] [address] Mary Tao MD Results 12/15/2023 Travel from Last 3 Months Immunizations Name Administration Dates Next Due COVID-19 VACCINE SPIKEVAX (M ODERNA 50MCG/0.5ML) 12YO+ PFS 12/11/2023,12/17/2022 COVID-19 vaccine (Pfizer-Bio NTech 30mcg/0.3mL) 12YO+ BIVALENT PF, MDV 01/29/2022 COVID-19 vaccine (Pfizer-Bio NTech 30mcg/0.3mL) 12YO+ JENNIFER-SUCROSE PF, MDV 06/19/2021 COVID-19 vaccine (Pfizer-Bio NTech 30mcg/0.3mL) PF, MDV 06/05/2020,05/15/2020 Hepatitis B (Adult) 02/03/2018,03/17/2016,2015 Influenza, High-dose Quadriv alent Inactivated 12/30/2019 Influenza, IIV3 (Age >=3 years) 11/24/19 13,12/09/2011,12/04/2010,2009,01/09/2009,01/20/2008,01/21/2007,1 04/23/2005,01/11/2005,02/13/2004, 003 Influenza, IIV4 11/26/2016, 6,11/21/2014,2013 Influenza, Inactivated AIIV4 (Age 65+ Years) Preserv Free 12/01/2022,11/15/2021,11/22/2020 Influenza, Inactivated IIV3 (Age 65+ Years) Preserv Free 12/11/2023,12/28/2018,12/04/2017 Pneumococcal Poly,23-Valent (Pneumovax) 01/13/2019,11/18/2012,01/26/2001 Pneumococcal conj 13-Valent (Prevnar 13) 02/03/2018 Td (Age >=7 Years) 07/21/1997 Tdap 02/12/2019,01/20/2008 Zoster (Shingrix-RZV, recombinant) 08/18/2019, Family History Medical History Relation Name Comments Hypertension Brother 5 Asthma Brother 6 Asthma Brother 7 Cancer Maternal Grandmother Cancer Mother uterine cancer, age 54 yr Hypertension Mother Other Mother Migraines Cancer Paternal Grandmother Heart Disease Sister 1 Heart Disease Sister 2 Heart Disease Sister 4 2 sisters, bot h , one at 36 and one at 37yr Hypertension Sister 5 Cancer-breast No Family History Cancer-ovarian No Family History Relation Name Status Comments Brother 1 Alive HTN Brother 2 Alive HTN Brother 3 Alive HTN Brother 4 Alive HTN Brother 5 Brother 6 Brother 7 Father (Age 25) gun shot w ound Maternal Grandmother cancer Mother (Age 53) cancer Paternal Grandmother cancer Sister 1 (Age 36) CABG 5 chasity es Sister 2 (Age 37) NC Sister 3 Alive HTN Sister 4 Sister 5 Social History Tobacco Use Types Packs/Day Years Used Date Smoking Tobacco: Former Cigarettes 3 17.7 0 07/13/1965 - 03/12/1983 Passive Smoke Exposure: Past Smokeless Tobacco: Never Tobacco Cessation:Counseling Given: No Comments:Was young when started and then quit. And started at age 19 until March of 1983 Alcohol Use Standard Drinks/Week Comments No 0 (1 standard drink = 0.6 oz pur e alcohol) none [facility] Utilities Answer Date Recorded Do you have trouble paying f or utilities (for example, heat, electricity, water, phone)? Yes 09/25/2023 PHQ-2 Answer Date Recorded PHQ-2 TOTAL SCORE 3 03/10/2024 Social Connections Answer Date Recorded Do you often feel lonely or isolated from those around you? 0 09/25/2023 Financial Resource Strain Answer Date R ecorded Difficulty of Paying Living Expenses 3 09/25/2023 Difficulty of Paying Living Expenses Not on file 09/25/2023 Food Insecurity Answer Date Recorded Do you worry your food will run out before you are able to buy more? 1 09/25/2023 Transportation Needs Answer Date Record ed Does lack of transportation keep you from medica l appointments? 1 09/25/2023 Does lack of transportation keep you from work, meetings or getting things that you need? 1 09/25/2023 Housing Stability Answer Date Recorded What is your housing situation today? 1 09/27/2023 Interpersonal Safety Answer Date Record ed Are you being hit, kicked, p ushed or yelled at (see row info)? No 03/06/2024 Interpersonal Safety Abuse 12 - 18 Not on file 03/06/2024 Interpersonal Safety Ambulatory Vulnerability No t on file 03/06/2024 Comments No Sex and Gender Information Value Date Recorded Sex Assigned at Female 09/10/2019 5:32 AM CDT Legal Sex Female 5:26 AM CONTENT MANAGEMENT SPECIALIST Gender Identity Female 09/10/2019 5:32 AM CDT Sexual Orientation Don't know 03/06/2024 11 :35 AM CONTENT MANAGEMENT SPECIALIST Occupation Industry Job Start Date Job End Date DISABLED Not on file Not on file Not on file Obstetrics History Para Term AB IAB SAB Ectopic Multiple Livin g Live Births 3 3 Date Outcome GA Total Labor Labor/2nd/3rd Weight Sex Type Anes PTL Muna A1 A5 Name Clin Last Filed Vital Signs Vital Sign Reading Time Taken Comments Blood Pressure 121/72 03/10/2024 8:42 AM CONTENT MANAGEMENT SPECIALIST Pulse 63 03/10/2024 8:42 AM CONTENT MANAGEMENT SPECIALIST Temperature 36.8 C (98.2 F) 03/06/2024 11:18 AM CONTENT MANAGEMENT SPECIALIST Respiratory Rate 18 03/06/2024 11:18 AM CONTENT MANAGEMENT SPECIALIST Oxygen Saturation 95% 03/10/2024 8:42 AM CONTENT MANAGEMENT SPECIALIST Inhaled Oxygen Concentration - - Weight 117 kg (258 lb) 03/06/2024 1:14 PM CONTENT MANAGEMENT SPECIALIST Height 157.5 cm (5' 2) 03/06/2024 1:14 PM CONTENT MANAGEMENT SPECIALIST Body Mass Index 47.19 03/06/2024 1:14 PM CONTENT MANAGEMENT SPECIALIST Plan of Treatment Upcoming Encounters Date Type Department Care Team (Late st Contact Info) Description 03/25/2024 8:45 AM CONTENT MANAGEMENT SPECIALIST Appointment [facility] [address] [place] [address] Sara Tovar, PT [address] [place] [address] 04/05/2024 10:00 AM CONTENT MANAGEMENT SPECIALIST Office Visit [facility] [address] [place] [address] [place] [address] [place] [address] Scheduled Procedures Name Priority Associated Diagnoses Date/Ti me SURGICAL PROCEDURE (TYPE PRO CEDURE DESCRIPTION BELOW) Recurrent UTI Health Maintenance Due Date Last Done Comments RSV vaccine for adults or (1 - Risk 60-74 years 1-dose series) 2012 Mammogram for age 45-75 09/17/2024 09/18/19 24, 07/15/2022, 06/13/2021, Additional history exists BMI (ht and wt on same day) for age 18+ 09/23/2024 09/24/2023, 09/18/2023, 08/05/2023, Additional history exists Medicare Wellness for age 65+ 03/11/2025, 07/15/2022, 06/13/2021, Additional history exists Depression screening for age 12+ 03/15/2025 03/15/2024, 03/11/2024, 03/10/2024, Additional history exists Colonoscopy through age 75 02/24/202702/24, 05/23/2019, 05/23/2019, Additional history exists Lipids for age 45-75 09/25/2028 09/26/2023, 07/15/2022, 04/24/2021, Additional history exists Tetanus booster 02/12/2029 02/12/2019, 01/07, 07/21/1997 Hepatitis C screening for ag e 18-79 Completed 02/12/2016 DEXA/DXA scan for age 65+ Completed 2018, 05/29/2015, 12/16/2011 Pneumococcal series for age 50+ Completed 01/13/2019, 02/03/2018, 11/18/2012, Additional history exists Tdap Completed 02/12/2019, 01/20/2008 Zoster (shingles) series for age 50+ Completed 08/18/2019, 02/12/2019 COVID-19 vaccine series Completed 12/11/19 24, 12/17/2022, 01/29/2022, Additional history exists Influenza for age 65+ Completed 12/11/2023 , 12/01/2022, 11/15/2021, Additional history exists Goals Goal Patient Goal Type Associated Problems Recent Progress Patient-Stated? Author BLOOD PRESSURE - Maintains BP less than 130/80 Blood Pressure On track( 9:13 AM CDT) Yes Genet Nielson RN DIET - Patient can identify low sodium food choices Diet Not on track( 9:18 AM CDT) No Genet Nielson RN Note: Patient says she is trying to eat lower sodium items. Patient received information sent regarding low sodium diet. MAGDA Hyman.....11/26/2018 9:16 AM CHF - Patient can describe 2 symptoms in each Heart Failure Zone General On track( 9:17 AM CDT) No Genet Nielson RN WEIGHT - Patient will weigh self daily and record it Weight On track( 9:14 AM CDT) Yes Genet Nielson RN Note: Patient reports she does weigh herself daily. Patient is keeping daily log, and will bring with to her Doctor's appointments. MAGDA Hyman.....11/26/2018 9:14 AM Medical Devices Implanted Type Area Shovel Loader Operator Device Identifier Shelf Expiration Date Model / Serial / Lot [id number] y Thong Dbm 1cc [[id number]] Implanted:Qty: 1 on 01/26/2009 at [facility] Explanted:at [facility] (Quantity not on file) Spine Medtronic 09/27/2010 [id number]# / [id number] / Plate Cerv Ant 60mm Atlantisvision [id number] - [id number] Implanted:Qty: 1 on 01/26/2009 at [facility] N/A: Cervical Vertebrae SOFAMOR DANEK 976160# / / Screw Fix 4.0x13 Self Drill - [id number] Implanted:Qty: 8 on 01/26/2009 at [facility] N/A: Cervical Vertebrae SOFAMOR DANEK 976-603# / / Cornerstone Psr [id number] - [id number] Implanted:Qty: 1 on 01/26/2009 at [facility] Spine SOFAMOR DANEK 5813149# / / [id number] Cornerstone Psr [id number] - [id number] Implanted:Qty: 2 on 01/26/2009 at [facility] Spine FE CAGLE [id number]# / / [id number] [facility]1688-Cp - [id number] Implanted:Qty: 1 on 07/28/2016 by Madi Ash DPKingston at [facility] Right: Foot [employer] Inc 05/06/2018 AR-1688- CP / / [id number] Fem Lt Sz2 Triathlon Cruc Ret Co Cr - [id number] Implanted:Qty: 1 on 02/10/2018 by Bradley Hoskins MD at [facility] Left: Knee [facility] 09/02/2022 5510-F-2 01# / / [id number] Insert Knee Sz2 13mm Triathloncondyle Stbz X3 - [id number] Implanted:Qty: 1 on 02/10/2018 by Bradley Hoskins MD at [facility] Left: Knee [employer] 10/14/2022 5531-G-2 13# / / [id number] Cmnt Bone Simplex P 1pk - [id number] Implanted:Qty: 2 on 02/10/2018 by Bradley Hoskins MD at [facility] Left: Knee [facility] 06/06/2020 6191-1-0 01# / / [id number] Patella 29x9mm Triathlon Asymmetric X3 - [id number] Implanted:Qty: 1 on 02/10/2018 by Bradley Hoskins MD at [facility] Left: Knee [facility] 11/26/2022 5551-G-2 99# / / [id number] Baseplate Tib Sz2 Triathlon Pe - [id number] Implanted:Qty: 1 on 02/10/2018 by Bradley Hoskins MD at [facility] Left: Knee [facility] [facility] 12/20/2022 5521-B-2 00# / / [id number] Cmnt Bone Simplex P 1pk - [id number] Implanted:Qty: 1 on 03/26/2018 by Bradley Hoskins MD at [facility] Right: Knee [facility] [facility] 07/06/2020 6191-1-0 01# / / [id number] Cmnt Bone Simplex P 1pk - [id number] Implanted:Qty: 1 on 03/26/2018 by Bradley Hoskins MD at [facility] Right: Knee [facility] 06/06/2020 6191-1-0 01# / / [id number] Patella 29x9mm Triathlon Asymmetric X3 - [id number] Implanted:Qty: 1 on 03/26/2018 by Bradley Hoskins MD at [facility] Right: Patella [facility] 01/12/2023 5551-G-2 99# / / [id number] Baseplate Tib Sz2 Triathlon Pe - [id number] Implanted:Qty: 1 on 03/26/2018 by Bradley Hoskins MD at [facility] Right: Tibia [facility] 01/19/2023 5521-B-2 00# / / [id number] Fem Rt Sz2 Triathlon Cruc Ret Co Cr - [id number] Implanted:Qty: 1 on 03/26/2018 by Bradley Hoskins MD at [facility] Right: Femur [facility] 11/07/2022 5510-F-2 02# / / [id number] Insert Knee Sz2 11mm Triathloncondyle Stbz X3 - [id number] Implanted:Qty: 1 on 03/26/2018 by Bradley Hoskins MD at [facility] Right: Knee [facility] 12/28/2022 5531-G-2 11# / / [id number] Screw Bio Tenodesis 3x8mm - [id number] Implanted:Qty: 1 on 12/13/2021 by Som Miller MD at [facility] Left: Hand [employer] 07/06/2025 AR-1530B C / / [id number] Procedures Procedure Name Priority Date/Time Associated Diagnosis Comments HEMOGLOBIN A1C MONITORING (POCT) Routine 03/10/2024 9:36 AM CONTENT MANAGEMENT SPECIALIST Controlled type 2 diabetes mellitus without complication, without long-term current use of insulin (HC) COMP METABOLIC PANEL Routine 03/10/2024 9:35 AM CONTENT MANAGEMENT SPECIALIST Controlled type 2 diabetes mellitus without complication, without long-term current use of insulin (HC) URINALYSIS MICROSCOPIC Routine 03/10/2024 9:31 AM CONTENT MANAGEMENT SPECIALIST Recurrent UTI URINE ALBUMIN TO CREATININE RATIO, RANDOM Routine 03/10/2024 9:31 AM CONTENT MANAGEMENT SPECIALIST Controlled type 2 diabetes mellitus without complication, without long-term current use of insulin (HC) URINE CULTURE Routine 03/10/2024 9:31 AM CONTENT MANAGEMENT SPECIALIST Recurrent UTI UA W/ SEDIMENT EXAM REFLEXED PER CRITERIA Routine 03/10/2024 9:31 AM CONTENT MANAGEMENT SPECIALIST Recurrent UTI XR HUMERUS MIN 2 VIEWS LEFT STAT 03/06/2024 1:39 PM CONTENT MANAGEMENT SPECIALIST BASIC METABOLIC PANEL STAT 01/30/2024 6:08 PM CONTENT MANAGEMENT SPECIALIST CBC W PLT NO DIFF STAT 01/30/2024 6:0 8 PM CONTENT MANAGEMENT SPECIALIST XR VIDEO SWALLOW W SPEECH Routine 01/21/2024 11:50 AM CONTENT MANAGEMENT SPECIALIST TROPONIN T (HS) ONE TIME Timed 01/17/2024 5:02 PM [address]ENT MANAGEMENT SPECIALIST [address] CHEST PE STUDY STAT 01/17/2024 4:2 3 PM CONTENT MANAGEMENT SPECIALIST D-DIMER,QUANTITATIVE STAT 01/17/2024 3:15 PM CONTENT MANAGEMENT SPECIALIST TROPONIN T (HS) ACUTE W/2HR REFLEX STAT 01/17/2024 3:15 PM CONTENT MANAGEMENT SPECIALIST BASIC METABOLIC PANEL STAT 01/17/2024 3:15 PM CONTENT MANAGEMENT SPECIALIST CBC W PLT NO DIFF STAT 01/17/2024 3:1 5 PM CONTENT MANAGEMENT SPECIALIST EKG 12 LEAD STAT 01/17/2024 2:59 PM CONTENT MANAGEMENT SPECIALIST LIPID PANEL Early AM 09/26/2023 6:39 AM CDT XR MAMMO MICHELLE BILAT SCREEN Routine 09/18/2023 1:40 PM CDT Encounter for screening for malignant neoplasm of breast, unspecified screening modality SCAN-COLONOSCOPY 02/24/2022 12:0 0 AM CONTENT MANAGEMENT SPECIALIST XR DXA BONE DENSITY 2 SITES AXIAL Routine 06/01/2018 11:00 AM CDT Asymptomatic menopausal state H/O: hysterectomy ANTI HCV Routine 02/12/2016 2:26 PM CONTENT MANAGEMENT SPECIALIST Need for hepatitis C screening test from Last 3 Months or Most Recently Relevant to Health Maintenance Results * HEMOGLOBIN A1C MONITORING (POCT) (03/10/2024 9:36 AM CONTENT MANAGEMENT SPECIALIST) Pathologist [facility] POC HEMOGLOBIN A1C 5.8 <6.0 % OF TOTAL HGB [facility] Comment: Any point of care results exhibiting inconsistency with the patient's clinical status should be repeated using a different testing method. Blood BLOOD SPECIMEN / Unknown 03/10/2024 9:36 AM CONTENT MANAGEMENT SPECIALIST 03/10/2024 9:36 AM CONTENT MANAGEMENT SPECIALIST us Mary Tao MD CHEMISTRY Final Resul t [facility] [address] [place] [address], [facility] [address] [place] [address] * (ABNORMAL) COMP METABOLIC PANEL (03/10/2024 9:35 AM CONTENT MANAGEMENT SPECIALIST) GLUCOSE 129(H) 65 - 99 mg/dL [facility] Comment: Fasting reference interval For someone without known diabetes, a glucose value >125 mg/dL indicates that they may have diabetes and this should be confirmed with a follow-up test. UREA NITROGEN (BUN) 17 7 - 25 mg/dL [facility] CREATININE 0.81 0.60 - 1.00 mg/dL [facility] EGFR 78 > OR = 60 mL/min/1. 73m2 [facility] BUN/CREATININE RATIO SEE NOTE: 6 - 22 (calc) [facility] Comment: Not Reported: BUN and Creatinine are within reference range. SODIUM 140 135 - 146 mmol/L [facility] POTASSIUM 3.9 3.5 - 5.3 mmol/L [facility] CHLORIDE 96(L) 98 - 110 mmol/L [facility] CARBON DIOXIDE 35(H) 20 - 32 mmol/L [facility] CALCIUM 9.0 8.6 - 10.4 mg/dL [facility] PROTEIN, TOTAL 7.3 6.1 - 8.1 g/dL [facility] ALBUMIN 4.4 3.6 - 5.1 g/dL [facility] GLOBULIN 2.9 1.9 - 3.7 g/dL (calc) [facility] ALBUMIN/GLOBULIN RATIO 1.5 1.0 - 2.5 (calc) [facility] BILIRUBIN, TOTAL 0.4 0.2 - 1.2 mg/dL [facility] ALKALINE PHOSPHATASE 69 37 - 153 U/L [facility] AST 27 10 - 35 U/L [facility] ALT 22 6 - 29 U/L [facility] Blood BLOOD SPECIMEN / Unknown 03/10/2024 9:35 AM CONTENT MANAGEMENT SPECIALIST 03/10/2024 9:36 AM CONTENT MANAGEMENT SPECIALIST us Mary Tao MD CHEMISTRY Final Resul t [facility] [address] [place] [address], [facility] [address] [place] [address] * (ABNORMAL) URINALYSIS MICROSCOPIC (03/10/2024 9:31 AM CONTENT MANAGEMENT SPECIALIST) RBC 0-2 0-2, None Seen /HPF 03/11/2024 12:10 AM CONTENT MANAGEMENT SPECIALIST [facility] WBC 6-10(A) 0-2, 3-5, None Seen /HPF 03/11/2024 12:10 AM CONTENT MANAGEMENT SPECIALIST [facility] BACTERIA Few None Seen, Rare, Few Bacteria/H PF 03/11/2024 12:10 AM CONTENT MANAGEMENT SPECIALIST [facility] EPITHELIAL CELLS Many(A) None Seen, Few Epi/HPF 03/11/2024 12:10 AM CONTENT MANAGEMENT SPECIALIST [facility] HYALINE CASTS 0-2 0-2, 3-5 /LPF 03/11/2024 12:10 AM CONTENT MANAGEMENT SPECIALIST [facility] Urine URINE SPECIMEN / Unknown Non-Blood / Unknown 03/10/2024 9:31 AM CONTENT MANAGEMENT SPECIALIST 03/10/2024 9:31 AM CONTENT MANAGEMENT SPECIALIST Tori FREY URINE Final Resul t Performing Organization Address City/[facility]/ZIP Co de Phone Number [facility] [address] [place] [address], [place] * URINE CULTURE (03/10/2024 9:31 AM CONTENT MANAGEMENT SPECIALIST) Pathologist [facility] CULTURE 10-50,000 CFU/mL of multiple organisms, probable contaminants 03/12/2024 1:18 PM CONTENT MANAGEMENT SPECIALIST [facility] Urine URINE SPECIMEN / Unknown Non-Blood / Unknown 03/10/2024 9:31 AM CONTENT MANAGEMENT SPECIALIST 03/10/2024 9:31 AM CONTENT MANAGEMENT SPECIALIST Tori FREY MICROBIOLOGY Final Resul t Performing Organization Address City/[facility]/ZIP Co de Phone Number [facility] [address] [place] [address], [place] * URINE ALBUMIN TO CREATININE RATIO, RANDOM (03/10/2024 9:31 AM CONTENT MANAGEMENT SPECIALIST) ALB RAND URINE <12.0 mg/L 03/11/2024 12:20 AM [facility] CREATININE,URINE 0.27 g/L 03/11/19 25 12:20 AM [facility] ALBUMIN TO CREATININE RATIO,RAND UR 03/11/2024 12:20 AM [facility] Comment:Urine Albumin below measurement range, unable to calculate. Urine URINE SPECIMEN / Unknown Non-Blood / Unknown 03/10/2024 9:31 AM [facility] 03/10/2024 9:31 AM [facility] - 03/11/2024 12:20 AM [facility] If Albumin to Creatinine Ratio is elevated, consider the following: Elevations seen with incipient nephropathy associated with diabetes mellitus or hypertension. Stress, exercise,hematuria, and urinary tract infection may also produce elevated results. If clinically indicated, confirm with 24 Hour Albumin to Creatinine Ratio. us Mary Tao MD URINE Final Resul t [facility] [address] [place] [address], [place] * (ABNORMAL) UA W/ SEDIMENT EXAM REFLEXED PER CRITERIA (03/10/2024 9:31 AM [facility]) COLOR Yellow Yellow Color 03/11/2024 12:10 AM [facility] CLARITY Cloudy(A) Clear Clarity 03/11/2024 12:10 AM [facility] SPECIFIC GRAVITY,URINE 1.010 1.010, 1.015, 1.020, 1.025 03/11/2024 12:10 AM [facility] PH,URINE 6.0 6.0, 7.0, 8.0, 5.5, 6.5, 7.5, 8.5 03/11/2024 12:10 AM [facility] UROBILINOGEN, QUALITATIVE Normal Normal EU/dl 03/11/2024 12:10 AM [facility] PROTEIN, URINE Negative Negative mg/dL 03/11/2024 12:10 AM [facility] GLUCOSE, URINE Negative Negative mg/dL 03/11/2024 12:10 AM CONTENT MANAGEMENT SPECIALIST [facility] KETONES,URINE Negative Negative mg/dL 03/11/2024 12:10 AM CONTENT MANAGEMENT SPECIALIST [facility] BILIRUBIN,URI NE Negative Negative 03/11/2024 12:10 AM CONTENT MANAGEMENT SPECIALIST [facility] OCCULT BLOOD,URINE Negative Negative 03/11/2024 12:10 AM CONTENT MANAGEMENT SPECIALIST [facility] NITRITE Negative Negative 03/11/2024 12:10 AM CONTENT MANAGEMENT SPECIALIST [facility] LEUKOCYTE ESTERASE Small(A) Negative 03/11/2024 12:10 AM CONTENT MANAGEMENT SPECIALIST [facility] Urine URINE SPECIMEN / Unknown Non-Blood / Unknown 03/10/2024 9:31 AM CONTENT MANAGEMENT SPECIALIST 03/10/2024 9:31 AM CONTENT MANAGEMENT SPECIALIST Tori FREY URINE Final Resul t [facility] [address] [address], [place] * XR HUMERUS MIN 2 VIEWS LEFT (03/06/2024 1:39 PM CONTENT MANAGEMENT SPECIALIST) Anatomical Region Laterality Modality HUMERI, HUMERUS L [employer] caleb 03/06/2024 2:18 PM CONTENT MANAGEMENT SPECIALIST Narrative 03/06/2024 2:18 PM CONTENT MANAGEMENT SPECIALIST For Patients: As a result of the Cures Act, medical imaging exams and procedure reports are released immediately into your electronic medical record. You may view this report before your referring provider. If you have questions, please contact your health care provider. Indication: Pain. Technique: Left humerus 2 views. Comparison: 08/05/2023. Findings: Bones: Alignment is normal. No fractures or bone lesions. Joint spaces: Severe glenohumeral joint arthritis, unchanged. No other finding to explain pain. Soft tissues: Unremarkable. Dictated by Efrain Campuzano MD @ 03/06/2024 2:18:45 PM (Electronically Signed) Procedure Note Efrain Campuzano MD - 03/06/2024 For Patients: As a result of the Cures Act, medical imagingexams and procedure reports are released immediately into your electronicmedical record. You may view this report before your referring provider.If you have questions, please contact your health care provider. Indication: Pain. Technique: Left humerus 2 views. Comparison: 08/05/2023. Findings: Bones: Alignment is normal. No fractures or bone lesions. Joint spaces: Severe glenohumeral joint arthritis, unchanged. No otherfinding to explain pain. Soft tissues: Unremarkable. Dictated by Efrain Campuzano MD @ 03/06/2024 2:18:45 PM (Electronically Signed) us Jeefrson Glass MD GENERAL IMAGING Final Result * CBC W PLT NO DIFF (01/30/2024 6:08 PM CONTENT MANAGEMENT SPECIALIST) Only the most recent of2 resultswithin the time period is included. WHITE BLOOD COUNT 8.6 4.5 - 11.0 thou/cu mm 01/30/2024 6:26 PM CONTENT MANAGEMENT SPECIALIST [facility] RED BLOOD COUNT 4.18 4.00 - 5.20 mil/cu mm 01/30/2024 6:26 PM CONTENT MANAGEMENT SPECIALIST [facility] HEMOGLOBIN 12.6 12.0 - 16.0 g/dL 01/30/2024 6:26 PM CONTENT MANAGEMENT SPECIALIST [facility] HEMATOCRIT 38.6 33.0 - 51.0 % 01/30/2024 6:26 PM CONTENT MANAGEMENT SPECIALIST [facility] MCV 92 80 - 100 fL 01/30/2024 6:26 PM CONTENT MANAGEMENT SPECIALIST [facility] MCH 30.1 26.0 - 34.0 pg 01/30/2024 6:26 PM CONTENT MANAGEMENT SPECIALIST [facility] MCHC 32.6 32.0 - 36.0 g/dL 01/30/2024 6:26 PM CONTENT MANAGEMENT SPECIALIST [facility] RDW 13.4 11.5 - 15.5 % 01/30/2024 6:26 PM CONTENT MANAGEMENT SPECIALIST [facility] PLATELET COUNT 214 140 - 440 thou/cu mm 01/30/2024 6:26 PM CONTENT MANAGEMENT SPECIALIST [facility] MPV 9.2 6.5 - 11.0 fL 01/30/2024 6:26 PM CONTENT MANAGEMENT SPECIALIST [facility] NRBC 0.0 % 01/30/2024 6:26 PM CONTENT MANAGEMENT SPECIALIST [facility] ABS NRBC 0.0 thou /cu mm 01/30/2024 6:26 PM CONTENT MANAGEMENT SPECIALIST [facility] Blood BLOOD SPECIMEN / Unknown Non-Lab Venipuncture / Unknown 01/30/2024 6:08 PM CONTENT MANAGEMENT SPECIALIST 01/30/2024 6:15 PM CONTENT MANAGEMENT SPECIALIST us Chichi FREY HEMATOLOGY Final Result [facility] [address] [place] [address], * (ABNORMAL) BASIC METABOLIC PANEL (01/30/2024 6:08 PM CONTENT MANAGEMENT SPECIALIST) Only the most recent of2 resultswithin the time period is included. SODIUM 141 136 - 145 mmol/L 01/30/2024 6:38 PM [facility] POTASSIUM 3.4(L) 3.5 - 5.1 mmol/L 01/30/2024 6:38 PM [facility] CHLORIDE 98 98 - 107 mmol/L 01/30/2024 6:38 PM [facility] CO2,TOTAL 32(H) 22 - 29 mmol/L 01/30/2024 6:38 PM [facility] ANION GAP 11 5 - 18 01/30/2024 6:38 PM [facility] GLUCOSE 106(H) 70 - 99 mg/dL 01/30/2024 6:38 PM [facility] CALCIUM 9.1 8.8 - 10.4 mg/dL 01/30/2024 6:38 PM [facility] Comment: Reference ranges for this test were updated on 01/12/2024 to reflect our healthy population more accurately. Reference range changes are not retroactively applied to results, but previous results using the same methodology can be interpreted in the context of the new reference range. BUN 19 8 - 23 mg/dL 01/30/2024 6:38 PM [facility] CREATININE 0.76 0.50 - 0.90 mg/dL 01/30/2024 6:38 PM [facility] BUN/CREAT RATIO 25(H) 10 - 20 6:38 PM CONTENT MANAGEMENT SPECIALIST [facility] eGFR 84(L) >90 mL/min/1. 73m2 01/30/2024 6:38 PM [facility] Comment:As of 2021, eG FR is calculated by the CKD-EPI creatinine equation without race adjustment. eGFR can be influenced by muscle mass, exercise, and diet. The reported eGFR is an estimation only and is only applicable if the renal function is stable. Blood BLOOD SPECIMEN / Unknown Non-Lab Venipuncture / Unknown 01/30/2024 6:08 PM CONTENT MANAGEMENT SPECIALIST 01/30/2024 6:14 PM CONTENT MANAGEMENT SPECIALIST us Chichi FREY CHEMISTRY Final Result [facility] [address] [address], * XR VIDEO SWALLOW AND TREATMENT W SPEECH (01/21/2024 11:50 AM CONTENT MANAGEMENT SPECIALIST) Anatomical Region Laterality Modality Esophagus Other us Christos Lindsay MD FLUOROSCOPY Final Result * TROPONIN T (HS) ONE TIME (01/17/2024 5:02 PM CONTENT MANAGEMENT SPECIALIST) TROPONIN T HS <6 6-10 ng/L ng/L 01/17/2024 5:25 PM CONTENT MANAGEMENT SPECIALIST [facility] Blood BLOOD SPECIMEN / Unknown Venipuncture / Unknown 01/17/2024 5:02 PM CONTENT MANAGEMENT SPECIALIST 01/17/2024 5:04 PM CONTENT MANAGEMENT SPECIALIST Nuria Alvarez MD CHEMISTRY Final Result [facility] [address] [place] [address] * CT CHEST PE STUDY (01/17/2024 4:23 PM CONTENT MANAGEMENT SPECIALIST) Anatomical Region Laterality Modality CHEST, THORAX, HEART Computed To mography 01/17/2024 4:42 PM CONTENT MANAGEMENT SPECIALIST Impressions 01/17/2024 4:42 PM CONTENT MANAGEMENT SPECIALIST 1. No pulmonary emboli. Low lung volumes with bilateral ground-glass opacities likely reflecting atelectasis. Superimposed infectious inflammatory process difficult to exclude. 2. 7 millimeter nodule follow-up per Fleischner society guidelines Please note that all CT scans at this facility use dose modulation, iterative reconstruction, and/or weight-based dosing when appropriate to reduce radiation dose to as low as reasonably achievable. Dictated by Lynsey Escalante MD @ 01/17/2024 4:42:30 PM (Electronically Signed) Narrative 01/17/2024 4:42 PM CONTENT MANAGEMENT SPECIALIST For Patients: As a result of the Cures Act, medical imaging exams and procedure reports are released immediately into your electronic medical record. You may view this report before your referring provider. If you have questions, please contact your health care provider. INDICATION: PE TECHNIQUE: CT chest with 100 mL Omnipaque 350 COMPARISON: CT 12/01/2023 FINDINGS: Lungs and pleura: 7 millimeter nodule left upper lobe 5/75 unchanged lung volumes are low. Bilateral ground-glass probable atelectasis infectious inflammatory etiologies would not be completely excluded Heart and vasculature: Heart size is normal. Thoracic aorta and pulmonary artery are normal in caliber. No pulmonary emboli. Lymph nodes/mediastinum: No mediastinal, hilar, or axillary adenopathy. Calcified mediastinal nodes Chest wall: No masses. Upper abdomen: Splenic granulomas liver granulomas cholecystectomy nodular contour to liver this can be seen with cirrhosis. Gastric bypass change Bones: No suspicious bony lesions. Procedure Note Lynsey Escalante MD - 01/17/2024 For Patients: As a result of the Cures Act, medical imagingexams and procedure reports are released immediately into your electronicmedical record. You may view this report before your referring provider.If you have questions, please contact your health care provider. INDICATION: PE TECHNIQUE: CT chest with 100 mL Omnipaque 350 COMPARISON: CT 12/01/2023 FINDINGS: Lungs and pleura: 7 millimeter nodule left upper lobe 5/75 unchanged lungvolumes are low. Bilateral ground-glass probable atelectasis infectiousinflammatory etiologies would not be completely excluded Heart and vasculature: Heart size is normal. Thoracic aorta and pulmonaryartery are normal in caliber. No pulmonary emboli. Lymph nodes/mediastinum: No mediastinal, hilar, or axillary adenopathy.Calcified mediastinal nodes Chest wall: No masses. Upper abdomen: Splenic granulomas liver granulomas cholecystectomy nodularcontour to liver this can be seen with cirrhosis. Gastric bypass change Bones: No suspicious bony lesions. IMPRESSION: 1. No pulmonary emboli. Low lung volumes with bilateral ground-glassopacities likely reflecting atelectasis. Superimposed infectiousinflammatory process difficult to exclude. 2. 7 millimeter nodule follow-up per Fleischner society guidelines Please note that all CT scans at this facility use dose modulation,iterative reconstruction, and/or weight-based dosing when appropriate toreduce radiation dose to as low as reasonably achievable. Dictated by Lynsey Escalante MD @ 01/17/2024 4:42:30 PM (Electronically Signed) Nuria Alvarez MD CT Final Result * TROPONIN T (HS) ACUTE W/2HR REFLEX (01/17/2024 3:15 PM CONTENT MANAGEMENT SPECIALIST) TROPONIN T HS 6 6-10 ng/L ng/L 01/17/2024 3:37 PM [facility] Blood BLOOD SPECIMEN / Unknown Venipuncture / Unknown 01/17/2024 3:15 PM CONTENT MANAGEMENT SPECIALIST 01/17/2024 3:17 PM CONTENT MANAGEMENT SPECIALIST [facility] - 01/17/2024 3:37 PM CONTENT MANAGEMENT SPECIALIST hs-cTnT (Elecsys Troponin T Gen 5) concentration (s) above the sex-specific 99th percentile (16 ng/L or greater for males or 11 ng/L or greater for females) are indicative of myocardial injury. If initial hs-cTnT <=100 ng/L at presentation, a 0h/2h ABSOLUTE (ng/L) delta change (rising or falling) of >=10 ng/L suggests a significant change, whereas a 0h/2h delta change <=3 ng/L suggests no significant change. If initial hs-cTnT >100 ng/L at presentation, a 0h/2h/ RELATIVE (percent, %) delta change of 20% is suggested to distinguish patients with acute vs. chronic myocardial injury. There are multiple etiologies that can cause hs-cTnT increases above the 99th percentile (myocardial injury) other than acute myocardial infarction. Clinical context and careful clinical evaluation are critical for diagnosis and risk-stratification. The diagnosis of acute myocardial infarction requires a rising and/or falling pattern in hs-cTnT concentrations with at least one value above the sex-specific 99th percentile PLUS at least one of the following clinical criteria: ischemic symptoms, new or presumed new significant ST-T wave changes or new LBBB, development of pathological Q waves, imaging evidence of new loss of viable myocardium or new regional wall motion abnormality, or identification of intracoronary atherothrombosis or an acute angiographic culprit on coronary angiography. In appropriate low-risk patients with a non-ischemic electrocardiogram without active chest pain with a symptom onset >3-hours without recurrence, a single initial hs-cTnT<6 ng/L identifies patient with a very low risk in emergency department patient population. Nuria Alvarez MD CHEMISTRY Final Result [facility] [address] [place] [address] * (ABNORMAL) D-DIMER,QUANTITATIVE (01/17/2024 3:15 PM CONTENT MANAGEMENT SPECIALIST) [facility] D-DIMER,QUANTI TATIVE 0.86 See comment FEU mcg/mL 01/17/2024 3:28 PM CONTENT MANAGEMENT SPECIALIST [facility] D-DIMER INTERP Abnormal( A) 01/17/2024 3:28 PM CONTENT MANAGEMENT SPECIALIST [facility] Blood BLOOD SPECIMEN / Unknown Venipuncture / Unknown 01/17/2024 3:15 PM CONTENT MANAGEMENT SPECIALIST 01/17/2024 3:17 PM CONTENT MANAGEMENT SPECIALIST [facility] LAB[facility]ATORY - 01/17/2024 3:28 PM CONTENT MANAGEMENT SPECIALIST The cut off value for exclusion of Deep Vein Thrombosis and / or Pulmonary Embolism is 0.50 FEU mcg/mL For patients greater than 50 years of age the upper limit is age dependent and was calculated with the formula: (PATIENT AGE x 0.01) FEU mcg/mL = Upper limit of normal range Nuria Alvarez MD HEMATOLOGY Final Result Performing Organization Address City/[facility] Co de Phone Number [facility] [address] [place] [address] * EKG 12 LEAD (01/17/2024 2:59 PM CONTENT MANAGEMENT SPECIALIST) Interpretation Sinus rhythm with occasional Premature ventricular complexes Left anterior fascicular block Abnormal ECG When compared with ECG of 01-Dec-2023 06:44, Premature ventricular complexes are now Present Premature atrial complexes are no longer Present No acute ischemic changes BEYOND NOW Ventricular Rate 70 BPM BEYOND NOW Atrial Rate 70 BPM BEYOND NOW P-R Interval 200 ms BEYOND NOW QRS Duration 118 ms BEYOND NOW QT 452 ms BEYOND NOW QTc 488 ms BEYOND NOW P [place] 65 degrees BEYOND NOW R [place] -45 degrees BEYOND NOW T [place] 57 degrees BEYOND NOW 01/17/2024 2:59 PM CONTENT MANAGEMENT SPECIALIST 01/17/2024 4:05 PM CONTENT MANAGEMENT SPECIALIST Nuria Alvarez MD EKG ORD Final Result Performing Organization Address [facility] Co de Phone Number BEYOND NOW [place], [place] * (ABNORMAL) Lipid Panel (09/26/2023 6:39 AM CDT) CHOLESTEROL,TOTAL 109 100 - 199 mg/dL 09/26/2023 7:[address] [facility] Comment: Cholesterol, Total Reference Ranges Desirable <200 mg/dL Borderline 200-239 mg/dL High >=240 mg/dL TRIGLYCERIDES 152(H) <150 mg/dL 09/26/2023 7:[address] [facility] HDL CHOLESTEROL 50 >40 mg/dL 7:[address] [facility] NON-HDL CHOLESTEROL 59 <145 mg/dl 09/26/2023 7:[address] [facility] CHOL/HDL RATIO 2.18 <4.50 09/26/2023 7:[address] [facility] LDL CHOLESTEROL 29 <=130 mg/dL 09/26/2023 7:[address] [facility] VLDL CHOLESTEROL 30 <=30 mg/dL 09/26/2023 7:[address] [facility] PROVIDER ORDERED STATUS RANDOM 09/26/2023 7:[address] [facility] Blood BLOOD SPECIMEN / Unknown Venipuncture / Unknown 09/26/2023 6:39 AM CDT 09/26/2023 6:46 AM CDT us Ana Garcia MD CHEMISTRY Final Resul t [facility] SENDOUT INTERNAL ZIP [address] [address] [place] [address] * XR MAMMO MICHELLE BILAT SCREEN (09/18/2023 1:40 PM CDT) Anatomical Region Laterality Modality BREASTS, Breast Left, Breast Right Bilateral Mammography Impressions 09/21/2023 9:32 AM CDT There is no radiographic evidence for malignancy. Recommend annual mammograms. MAMMOGRAM ASSESSMENT: ACR 1 Negative PATIENTS: You will also receive a letter with your examination results in an easy to read format. If you have questions about your results, please contact your referring provider. Narrative 09/21/2023 9:32 AM CDT For Patients: As a result of the Century Cures Act, medical imaging exams and procedure reports are released immediately into your electronic medical record. You may view this report before your referring provider. If you have questions, please contact your health care provider. XR MAMMO MICHELLE BILAT SCREEN [[id number]] CLINICAL HISTORY: This is an asymptomatic 72 y.o. patient. INDICATION FOR EXAM: Mammogram Screening. TECHNIQUE: CC & MLO views were obtained. This study was evaluated with the assistance of Computer-Aided Detection. Breast Tomosynthesis was used in interpretation. COMPARISON FILM: Yes 07/15/22 [facility] FINDINGS: The breasts are almost entirely fatty. There are no dominant masses, suspicious micro calcifications or areas of architectural distortion. us Mary Tao MD MAMMO Final Resul t * SCAN-COLONOSCOPY (02/24/2022 12:00 AM CONTENT MANAGEMENT SPECIALIST) us Scanner OTHER Final Result * (ABNORMAL) XR DXA BONE DENSITY 2 SITES AXIAL (06/01/2018 11:00 AM CDT) Anatomical Region Laterality Modality Spine, HIPS, HIPL, HIPR Other Narrative 06/02/2018 9:00 PM CDT Please see scanned document for results of this study. us Mary Tao MD DEXA Final Resul t * ANTI HCV (02/12/2016 2:26 PM CONTENT MANAGEMENT SPECIALIST) HEPATITIS C ANTIBODY Non-Reacti ve Non-Reacti ve 02/12/2016 9:09 PM CONTENT MANAGEMENT SPECIALIST [facility] Blood BLOOD SPECIMEN / Unknown Venipuncture / Unknown 02/12/2016 2:26 PM CONTENT MANAGEMENT SPECIALIST 02/12/2016 2:26 PM CONTENT MANAGEMENT SPECIALIST Narrative [facility] LAB[facility] - 02/12/2016 9:09 PM CONTENT MANAGEMENT SPECIALIST Antibodies to HCV not detected; does not exclude the possibility of exposure to HCV. us Destiney Blas HOSPICE CARE CONSULTANT SEND OUTS F inal Result [facility] 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 06/27/2021 Healthcare Directive 12/11/2015 11:54 AM Ar GAMBLE, 11/16/15 Healthcare Directive 01/29/2010 12:00 AM ADVANCE DIRECTIVE Healthcare Directive 01/27/2010 * Full Code (Latest Code Status on File) Date Activated Date Inactivated Comments 09/26/2023 1:27 AM 09/29/2023 2:08 PM Question Answer Comments Code Status Discussion: Unable to Assess Preferences, Provider to review later * Full Code Date Activated Date Inactivated Comments 09/25/2023 1:24 PM 09/26/2023 12:18 AM Question Answer Comments Code Status Discussion: Reviewed Preferences * Full Code Date Activated Date Inactivated Comments 09/08/2023 10:01 AM 09/08/2023 1:56 PM Question Answer Comments Code Status Discussion: Reviewed Preferences * Partial Code Date Activated Date Inactivated Comments 06/18/2023 3:24 PM 06/22/2023 1:52 PM Question Answer Comments Cardio Resuscitation: No Chest Compressions Ventilation: No Restrictions Drug Protocol: No Drug Protocol After Arrest Oc curs * DNR Date Activated Date Inactivated Comments 05/13/2023 1:33 AM 05/14/2023 5:20 PM Question Answer Comments Code Status Discussion: Reviewed Preferences Care Teams Member Services Coordinator Relationship Specialty Start Date End Date Destiney Mckeon NP [address] [facility] [address] [place] [address] PCP - General Nurse Practitioner - Acute Care 03/10/24 Satinder Sanchez MD Neurology 12/24/12 Trace Winn MD Emergency Medicine 12/24/12 Kvng Escalante MD Psychiatry 12/24/12 Ignacio Smith MD Surgery - Orthopedics 12/24/12 [place] [address] [place] [address] Surgery - Orthopedics 12/24/12 [place] [address] [place], [place] [id number] Cardiovascular Disease 12/24/12 [place] [address] [place] [address] Cardiovascular Disease 12/24/12 Tomas Lazar MD [address] [place] [address] Sports Medicine 01/26/14 Aminah Fair MD [address] [place] [address] Consulting Physician Cardiovascular Disease 03/22/15 Dirk Farah MD [address] [place] [address] Pulmonology Pulmonary Medicine 11/18/18 [place] [address] [place] [address] Pulmonology Pulmonary Medicine 09/13/19
--- OUTSIDE RECORDS SUMMARY | 2024-03-15 23:54 | XMS_ITS | Referral Summary ---
Author Organization [facility] Address [address] [place] [address] Care Team Providers Care Professor Of Sport Management Name Role Phone Unavailable Primary Care Provider Unavailabl e Source Comments Patient records contain information from all sites at [facility]. For routine questions regarding patient records, call [phone] during business hours, M-F 8:00 AM - 5:00 PM Central Time. Record requests for emergency care only can be directed to [phone] at any time.[facility] Encounters Date Type Department Care Team Description 01/21/2024 10:54 AM TRACKWALKER - 01/21/2024 11:59 PM TRACKWALKER Hospital Encounter Department of Radiology in [place], [place] [address] [id number] Christos Lindsay M.D. Other Dysphagia; Hypertension Essential Primary Discharge Disposition: Home or Self Care from Last 3 Months Active Problems Problem Noted Date Diagnosed Date Sleep Related Hypoventilatio n Hypoxemia With Obesity Body Mass Index Greater Than 30 08/08/2015 Asthma Intrinsic 07/06/2015 Social History Tobacco Use Types Packs/Day Years Used Date Smoking Tobacco: Former Nutrition Answer Date Recorded Nutrition: EVOO Fat Source Unknown 06/25 Nutrition: Servings of Fruits/Vegetables per Day Not on file 06/25/2022 Dental Answer Date Recorded Dental: Regular Dentist Unknown 06/26/19 23 Comments Unknown Sex and Gender Information Value Date Recorded Sex Assigned at Not on file Legal Sex Female 7:18 AM TRACKWALKER Gender Identity Not on file Sexual Orientation Not on file Last Filed Vital Signs Vital Sign Reading Time Taken Comments Blood Pressure 125/81 07/25/2015 2:27 PM CDT Vital sign result from Clinical Notes. Pulse 82 07/25/2015 2:27 PM CDT Vital sign result from Clinical Notes. Temperature - - Respiratory Rate - - Oxygen Saturation - - Inhaled Oxygen Concentration - - Weight 119 kg (262 lb 5.6 oz) 07/25/2015 2:27 PM CDT Vital sign result from Clinical Notes. Height 161 cm (5' 3.39) 07/25/2015 2:2 7 PM CDT Vital sign result from Clinical Notes. Body Mass Index 45.91 07/25/2015 2:27 PM CDT Plan of Treatment Not on file Procedures Procedure Name Priority Date/Time Associated Diagnosis Comments FL SWALLOW FUNCTION WITH VIDEO AND SPEECH RAD - Routine (most inpatients and all outpatients) 01/21/2024 11:50 AM TRACKWALKER Other Dysphagia Hypertension Essential Primary ABG AND ELECTROLYTES, B ([email or web address]) Routine 05/30/2017 12:11 PM CDT from Last 3 Months or Most Recently Relevant to Health Maintenance Results * FL Swallow Function with Video and Speech or OT (01/21/2024 11:50 AM TRACKWALKER) Anatomical Region Laterality Modality Gastro Intestinal, Abdominal RST LOS, Abdominal ARZ LOS, Abdominal FLA LOS N/A Digital Radiography Impressions 01/21/2024 1:23 PM TRACKWALKER Dysphagia with episodes of aspiration. Narrative 01/21/2024 1:23 PM TRACKWALKER EXAM: FL SWALLOW FUNCTION WITH VIDEO AND SPEECH OR OT FINDINGS: Modified barium swallow was performed in conjunction with member of speech pathology team. Various consistencies of barium were fed to the patient and swallowing was observed under fluoroscopy. Please refer to the note by the speech pathologist for further details and recommendations. When swallowing thin liquids, there is aspiration. When swallowing mildly thickened liquids, there is penetration at least to the level of the vocal cords. When swallowing thicker consistencies, there is no aspiration or penetration. Procedure Note Dirk Kent M.D. - 01/21/2024 EXAM: FL SWALLOW FUNCTION WITH VIDEO AND SPEECH OR OT FINDINGS: Modified barium swallow was performed in conjunction with memberof speech pathology team. Various consistencies of barium were fed to thepatient and swallowing was observed under fluoroscopy. Please refer to thenote by the speech pathologist for further details and recommendations. When swallowing thin liquids, there is aspiration. When swallowing mildlythickened liquids, there is penetration at least to the level of the vocalcords. When swallowing thicker consistencies, there is no aspiration orpenetration. IMPRESSION: Dysphagia with episodes of aspiration. Christos Lindsay M.D. IMG FLUOROSCOPY PROCEDURES Odalis davenport Result from Last 3 Months Insurance [facility]
--- OUTSIDE RECORDS SUMMARY | 2024-03-15 23:54 | XMS_ITS ---
Author Organization [facility] Address [address] [place] [address] Care Team Providers Care Mechanical Equipment Test Engineer Name Role Phone Unavailable Unavailable Unavailable Surgery Details Not on file Complications Check Surgery Details section. Procedure Estimated Blood Loss Check Surgery Details section. Procedure Findings Check Surgery Details section. Procedure Specimens Taken Check Surgery Details section.
--- OUTSIDE RECORDS SUMMARY | 2024-03-15 23:54 | XMS_ITS | Clinical Summary ---
Author Organization [facility] Address [address] [place] [address] Care Team Providers Care Blanking Press Operator Name Role Phone Unavailable Primary Care Provider Unavailabl e Source Comments Patient records contain information from all sites at [facility]. For routine questions regarding patient records, call [phone] during business hours, M-F 8:00 AM - 5:00 PM Central Time. Record requests for emergency care only can be directed to [phone] at any time.[facility] Active Problems Problem Noted Date Diagnosed Date Sleep Related Hypoventilatio n Hypoxemia With Obesity Body Mass Index Greater Than 30 08/08/2015 Asthma Intrinsic 07/06/2015 Encounters Date Type Department Care Team Description 01/21/2024 10:54 AM TAX MAP TECHNICIAN - 01/21/2024 11:59 PM TAX MAP TECHNICIAN Hospital Encounter Department of Radiology in [place], [place] [address] [place] [id number] Christos Lindsay M.D. Other Dysphagia; Hypertension Essential Primary Discharge Disposition: Home or Self Care from Last 3 Months Social History Tobacco Use Types Packs/Day Years Used Date Smoking Tobacco: Former Nutrition Answer Date Recorded Nutrition: EVOO Fat Source Unknown 06/25 Nutrition: Servings of Fruits/Vegetables per Day Not on file 06/25/2022 Dental Answer Date Recorded Dental: Regular Dentist Unknown 06/26/19 23 Comments Unknown Sex and Gender Information Value Date Recorded Sex Assigned at Not on file Legal Sex Female 7:18 AM TAX MAP TECHNICIAN Gender Identity Not on file Sexual Orientation [...] 07/25/2015 2:27 PM CDT Plan of Treatment Health Maintenance Due Date Last Done Comments CT Colonography 1952 Cologuard 1950 FIT 1950 Hepatitis C Screening 1950 Depression Screening (Annual PHQ-2) 03/09/2023 Fall Risk Screen (Annual) 03/09/2023 Mammogram 09/17/2024 09/18/2023, 09/06, 07/15/2022, Additional history exists Fasting Glucose for Diabetes Screening 01/16/2027 01/17/2024, 12/01/2023, 10/30/2023, Additional history exists DTaP,Tdap,and Td Vaccines (3 - Td or Tdap) 02/12/2029 02/12/2019, 01/20/2008 Colonoscopy 02/25/2032 02/24/2022, 05/07, 05/30/2015 (Performed elsewhere) Colorectal Cancer Screening 02/25/2032 Bone Density Scan (Osteoporosis Screen) Discontinued 06/01/2018 Pneumococcal vaccine (50+ years) Completed 01/13/2019, 02/03/2018, 11/18/2012, Additional history exists Zoster Vaccines Completed 08/18/2019, 02/12/2019 COVID-19 Vaccine Completed 12/11/2023, 01/2023, 01/29/2022, Additional history exists Influenza Vaccine Completed 12/11/2023, , 11/15/2021, Additional history exists IPV Vaccines Aged Out No longer eligi ble based on patient's age to complete this topic Procedures Procedure Name Priority Date/Time Associated Diagnosis Comments FL SWALLOW FUNCTION WITH VIDEO AND SPEECH RAD - Routine (most inpatients and all outpatients) 01/21/2024 11:50 AM TAX MAP TECHNICIAN Other Dysphagia Hypertension Essential Primary ABG AND ELECTROLYTES, B (RAPIDPOINT - [place]) Routine 05/30/2017 12:11 PM CDT from Last 3 Months or Most Recently Relevant to Health Maintenance Results * FL Swallow Function with Video and Speech or OT (01/21/2024 11:50 AM TAX MAP TECHNICIAN) Anatomical Region Laterality Modality Gastro Intestinal, Abdominal RST LOS, Abdominal ARZ LOS, Abdominal FLA LOS N/A Digital Radiography Impressions 01/21/2024 1:23 PM TAX MAP TECHNICIAN Dysphagia with episodes of aspiration. Narrative 01/21/2024 1:23 PM TAX MAP TECHNICIAN EXAM: FL SWALLOW FUNCTION WITH VIDEO AND [...] Christos Lindsay M.D. IMG FLUOROSCOPY PROCEDURES Odalis l Result from Last 3 Months Insurance [facility]
--- OUTSIDE RECORDS SUMMARY | 2024-03-15 23:54 | XMS_ITS | Referral Summary ---
Author Organization [facility] Address [address] [place] [address]. [place] [address] Care Team Providers Care Mortgage Loan Processor Name Role Phone Dirk BessyD Unavailable [phone] Mary Tao MD Primary Care Provider [phone] Amy Zaragoza PA-C Unavailable Allergies Active Allergy [...] Therapy Supplies (CARETOUCH CPAP & BIPAP HOSE) [facility] [place] use at pressure: [...] (02/19/2018): Overview: 12/30/16 signed .Angelica Mcbride DNP, SALVAGE INSPECTOR [employer], CONTOUR BAND SAW OPERATOR VERTICAL/psychiatry/hc Moderate episode of recurrent major depressive d [...] (02/19/2018): Overview: Verbal Order per Destiney Swanson, CONTOUR BAND SAW OPERATOR VERTICAL, Read Back Serum creatinine raised 05/30/2014 Overview [...] Gastroesophageal reflux disease without esophagi tis 07/31/2006 Social History Tobacco Use Types Packs/Day Years [...] on file Legal Sex Female 1:54 PM PENS AND PENCILS REPAIRER Gender Identity Not on file Sexual Orientation Not on file Last Filed Vital Signs Vital Sign Reading Time Taken Comments Blood Pressure 153/76 11/25/2022 1:32 PM CDT Pulse 49 11/25/2022 1:32 PM CDT Temperature 36.2 C (97.1 F) 02/24/2022 12:30 PM PENS AND PENCILS REPAIRER Respiratory Rate 16 02/24/2022 12:55 PM PENS AND PENCILS REPAIRER Oxygen Saturation 97% 11/25/2022 1:32 PM CDT Inhaled Oxygen Concentration - - Weight 108.4 kg (239 lb) 11/25/2022 1:32 PM CDT Height 160 cm (5' 3) 11/25/2022 1:32 PM CDT Body Mass Index 42.34 11/25/2022 1:32 PM CDT Plan of Treatment Not on file Procedures Procedure Name Priority Date/Time Associated Diagnosis Comments COLONOSCOPY Routine 02/24/2022 10:47 AM PENS AND PENCILS REPAIRER GLUCOSE BY METER Routine 02/24/2022 10:1 5 AM PENS AND PENCILS REPAIRER CBC WITH PLATELETS & DIFFERENTIAL STAT 01/06/2022 5:25 PM CDT BASIC METABOLIC PANEL STAT 01/06/2022 5:25 PM CDT MAMMOGRAM - HIM SCAN Routine 12/09/2017 from Last 3 Months or Most Recently Relevant to Health Maintenance Results * COLONOSCOPY (02/24/2022 10:47 AM PENS AND PENCILS REPAIRER) [facility] [place] [facility] Patient Name: Ana Early Procedure [...] # [id number], [place] # [id number], SN # [id number] was introduced through the anus and advanced [...] AM RADIOLOGY RESULTS 02/24/2022 10:4 7 AM PENS AND PENCILS REPAIRER us Purnima Pinedo MD PROCEDURES Final Resu lt RADIOLOGY RESULTS * Glucose by meter (02/24/2022 10:15 AM PENS AND PENCILS REPAIRER) GLUCOSE BY METER POCT 99 70 - 99 mg/dL 02/24/2022 10:23 AM PENS AND PENCILS REPAIRER LABORATORY POC Blood, Capillary BLOOD SPECIMEN / Unknown 02/24/2022 10:15 AM PENS AND PENCILS REPAIRER 02/24/2022 10:23 AM PENS AND PENCILS REPAIRER us Devon Floyd MD LAB - BEAKER POCT Final Re sult RH LABORATORY POC [facility] [address] Lab (1st floor, no room number) [place] [address], [facility] [phone] * (ABNORMAL) Basic metabolic panel (01/06/2022 5:25 PM CDT) Sodium 137 136 - 145 mmol/L 01/06/2022 [...] >60 mL/min/1.7 3m2 01/06/2022 5:54 PM CDT LABORATORY Comment:Effective February 072020 eGFRcr in adults is calculated using the 2020 CKD-EPI creatinine equation which includes age and gender (Lesley et al., NEJM, DOI: 10.1056/XZVTre0346314) Blood STRUCTURE OF LEFT UPPER LIMB / Unknown Venipuncture / Unknown 01/06/2022 5:25 PM CDT 01/06/2022 5:35 PM CDT us Erick Flores MD LAB - BLOOD ORDERABLES F inal Result LABORATORY [facility] [address] Lab (1st floor, no room number) [place] [address], [facility] [phone] * Mammogram - HIM Scan (12/09/2017) Anatomical Region Laterality Modality Other Narrative 12/09/2017 Result Impression There is no radiographic evidence for malignancy. Recommend annual mammograms. A lay language report of this examination will be provided to the patient. MAMMOGRAM ASSESSMENT: ACR 2 Benign Other Result Information Result Narrative XR MAMMO BILAT SCREENING [[id number]] CLINICAL HISTORY: This is an asymptomatic 67 y.o. patient. INDICATION FOR EXAM: Mammogram Screening. TECHNIQUE: CC & MLO views were obtained. This digital study was evaluated with the assistance of Computer-Aided Detection. COMPARISON FILMS: Yes 07/10/16 [facility] 05/29/15 [facility] FINDINGS: Mammographically, the breast tissue is almost entirely fat. No suspicious masses or microcalcifications. Benign appearing calcifications within both breasts and Benign appearing asymmetry within left breast. us Provider Outside IMG MAMMOGRAPHY ORDERABLES Odalis l Result from Last 3 Months or Most Recently Relevant to Health Maintenance Insurance [facility] [employer] MEDICARE ADVANTAGE [employer] Care Teams Mortgage Loan Processor Relationship Specialty Start Date End Date Mary Tao MD [facility] [address] [place] [address] PCP - General Family Medicine 01/06/22 Dirk Bess, Daisy [address] [place] [address] Referring Physician 02/01/18 Amy Zaragoza PA-C [address] [place] [address] Assigned Musculoskeletal Provider 04/02/23
--- OUTSIDE RECORDS SUMMARY | 2024-03-15 23:54 | XMS_ITS | Encounter Summary ---
Author Organization [facility] Address [facility] [place] [address] Care Team Providers Care Extruder Operator Name Role Phone Dikr BessyD Unavailable [phone] Mary Tao MD Primary Care Provider [phone] Amy Zaragoza PA-C Unavailable Reason for Referral * Consultation (Routine: Next available opening) - Closed Specialty Diagnoses / Procedures Referred By Karyna t Referred To Contact Diagnoses Left shoulder pain Mary Tao MD [facility] [address] [place] [address] Phone: tel: fax: [facility] [address] [facility] [address] [place] [address] Phone: tel: fax: Referral ID Status Reason Start Date Expiration Date Visits Re quested Visits Authorized [id number] Closed 2022 2023 1 1 Question Answer Referral Type: Procedure Procedure: Other My Clinical Question Is: spine Scheduling Instructions: [facility] will call you to coordinate your care as prescribed by your provider. If you don't hear from a employee's representative within 2 business days, please call . Comments Please be aware that coverage of these services is subject to the terms and limitations of your health insurance plan. Call member services at your health plan with any benefit or coverage questions. [facility] will call you to coordinate your care as prescribed by your provider. If you don't hear from a employee's representative within 2 business days, please call . Encounter Details Date Type Department Care Team (Late st Contact Info) Description 2022 Transcribe Orders [facility] [address] [phone] Mary Tao MD [facility] [address] [place] [address] Left shoulder pain (Primary Dx) Social History Tobacco Use Types Packs/Day Years Used Date Smoking Tobacco: Former Smokeless Tobacco: Never Alcohol Use Standard Drinks/Week Comments No 0 (1 standard drink = 0.6 oz pur e alcohol) AUDIT-C Answer Date Recorded Frequency of Alcohol Consumption Never 02/20/2018 Average Number of Drinks Not on file 018 Frequency of Binge Drinking Not on file 02/06 Comments No Sex and Gender Information Value Date Recorded Sex Assigned at Not on file Legal Sex Female 1:54 PM LEATHER SEASONER Gender Identity Not on file Sexual Orientation Not on file documented as of this encounter Plan of Treatment Scheduled Referrals Name Type Priority Associated Diagnoses Orde r Schedule Spine Capacity Planning Manager Referral Referral Routine: Next available opening Left shoulder pain Expected: 2022 (Approximate), Expires: 11/06/2023 documented as of this encounter Visit Diagnoses Diagnosis Left shoulder pain- Primary Pain in joint, shoulder region documented in this encounter Care Teams Extruder Operator Relationship Specialty Start Date End Date Mary Tao MD [facility] [address] [place] [address] PCP - General Family Medicine 01/06/22 Dirk Bess PsyD [address] [facility] [address] [place] [address] Referring Physician 02/01/18 Amy Zaragoza PA-C [address] [place] [address] Assigned Musculoskeletal Provider 04/02/23 documented as of this encounter
[2024-03-16 00:03] VITALS: PULSE 60; O2SAT 93
[2024-03-16 00:09] LABS: PCR FLU A Negative PCR FLU A (Negative); PCR FLU B Negative PCR FLU B (Negative); PCR RSV Negative PCR RSV (Negative); SARS PCR* Negative SARS-CoV-2 (Negative)
[2024-03-16 00:47] VITALS: PULSE 60; O2SAT 98
[2024-03-16] MEDS: ONDANSETRON 2 MG/ML inj 4 MG IVP (00:47)
[2024-03-16] MEDS: HYDROmorphone 0.5 mg/0.5 ml inj IVP (00:47)
[2024-03-16 01:00] VITALS: PULSE 55; O2SAT 95
== END 2024-03-16 01:50 | disposition home or self-care (01) ==
PROVIDERS: Emergency Provider Emergency Medicine Emergency Medical Services; PCP Family Medicine
DX: S00.93XA Contusion of unspecified part of head, initial encounter (principal); W18.30XA Fall on same level, unspecified, initial encounter
CPT/HCPCS: 70450; 72125; 73502; 82962; 87631; 93005; 96374; 99284; 99285; 99291; G0390; J1171; J2405

== ENCOUNTER 2024-05-06 21:15 | Emergency (ER) | payer MEDICARE, MEDICAID, SELFPAY ==
[2024-05-06 21:35] VITALS: BP 140/73; PULSE 70; RESP 18; TEMP 36.2; O2SAT 92; BMI 46.8
--- NOTE | 2024-05-06 22:01 | ED.GENADULT ---
HPI - General Adult General Chief complaint: Extremity Pain/Injury, Upper Stated complaint: Pain from L shoulder down. Time Seen by Provider: 05/06/24 21:37 Source: patient Mode of arrival: wheelchair Limitations: no limitations History of Present Illness HPI narrative: 73-year-old female with a very complex medical history presenting today with left arm pain that she has had for over a year. Patient is requesting a refill on her tramadol. Tells me that she has been taking tramadol for about a month. Tells me that she recently ran out. I spoke to nursing staff at [facility] where patient lives in assisted living and they told me that patient had a tramadol dose at 7:00 p.m. this evening. They stated that she ran out of her p.r.n. dose. Looking at the P BMP report patient had 56 tablets of tramadol filled 8 days ago. And she had multiple prescriptions for tramadol written in December and February of 2024 that she had filled in March 2024. My discussed this with the patient she states oh that's right, it probably has been longer than a week that I have been taking tramadol. She also tells me that the assisted living takes away her medications all the time and they do not give her the medication that she is prescribed. She even states that they did give her her seizure medication once because they were concerned that she was going to overdose. Patient states that her arm pain is not new. She has had therapy for it in the past. She has seen multiple doctors for it she states. She states that the assisted living told her she could no longer see her doctor and she does not know where she is going to get her next tramadol refill from. Related Data Home Medications ?Medication ?Instructions ?Recorded ?Confirmed albuterol 90 mcg/actuation aerosol 2.5 mcg inhalation 03/16/24 inhaler clopidogrel 75 mg tablet 75 mg PO QAM 03/16/24 03/16/24 levetiracetam 250 mg tablet 250 mg PO BID 03/16/24 03/16/24 (Keppra) lisinopril 2.5 mg tablet 2.5 mg PO DAILY 03/16/24 03/16/24 montelukast 10 mg tablet 10 mg PO QPM 03/16/24 03/16/24 nitroglycerin 0.4 mg sublingual 0.4 mg sublingual 03/16/24 tablet prednisone 5 mg tablet 5 mg PO DAILY 03/16/24 03/16/24 solifenacin 10 mg tablet (Vesicare) 10 mg PO DAILY 03/16/24 03/16/24 torsemide 20 mg tablet 20 mg PO DAILY 03/16/24 03/16/24 vibegron 75 mg tablet (Gemtesa) 75 mg PO DAILY 03/16/24 03/16/24 Allergies Allergy/AdvReac Type Severity Reaction Status Date / Time camphor (From [employer] Vaporub) Allergy Severe Seizure Verified 03/16/24 00:01 ethinyl estradiol (From Allergy Severe Verified 03/16/24 00:01 Seasonale (91)) eucalyptus (From [employer] Allergy Severe Seizure Verified 03/16/24 00:01 Vaporub) levonorgestrel (From Allergy Severe Verified 03/16/24 00:01 Seasonale (91)) menthol (From [employer]) Allergy Severe Seizure Verified 03/16/24 00:01 petrolatum,white (From [employer] Allergy Severe Seizure Verified 03/16/24 00:01 Vaporub) turpentine oil (From [employer] Allergy Severe Seizure Verified 03/16/24 00:01 Vaporub) dobutamine Allergy Mild Gastrointestinal Verified 03/16/24 00:01 Upset erythromycin base Allergy Mild Rash Verified 03/16/24 00:01 gadopentetic acid (From Allergy Mild Rash Verified 03/16/24 00:01 Magnevist) Iodinated Contrast Media Allergy Mild Rash Verified 03/16/24 00:01 Latex, Natural Rubber Allergy Mild Rash Verified 03/16/24 00:01 NSAIDS (Non-Steroidal Allergy Mild bariatric Verified 03/16/24 00:01 Anti-Inflamma surgery oxcarbazepine Allergy Mild Confusion Verified 03/16/24 00:01 theophylline Allergy Mild Headache Verified 03/16/24 00:01 zoster vaccine live Allergy Mild Rash Verified 03/16/24 00:01 fructose Allergy Unknown Verified 03/16/24 00:01 adhesive tape AdvReac Mild Rash Verified 03/16/24 00:01 diatrizoate sodium AdvReac Mild Rash Verified 03/16/24 00:01 rosuvastatin AdvReac Mild Nightmare Verified 03/16/24 00:01 perfume AdvReac Unknown asthma Verified 03/16/24 00:01 Review of Systems Status of ROS: Reports: 6 or more systems reviewed and unremarkable except as noted in History and below [facility] Medical History Urinary, incontinence, stress female ?N39.3 - Stress incontinence (female) (male) (ICD-10) Syncope and collapse ?R55 - Syncope and collapse (ICD-10) Seizure disorder ?G40.909 - Epilepsy, unspecified, not intractable, without status epilepticus (ICD-10) NSTEMI (non-ST elevated myocardial infarction) ?I21.4 - Non-ST elevation (NSTEMI) myocardial infarction (ICD-10) Neuropathy ?G62.9 - Polyneuropathy, unspecified (ICD-10) Mitral incompetence ?I34.0 - Nonrheumatic mitral (valve) insufficiency (ICD-10) Elevated LFTs ?R79.89 - Other specified abnormal findings of blood chemistry (ICD-10) Fibromyalgia ?M79.7 - Fibromyalgia (ICD-10) Edema of extremities ?R60.0 - Localized edema (ICD-10) CTS (carpal tunnel syndrome) ?G56.00 - Carpal tunnel syndrome, unspecified upper limb (ICD-10) Conversion disorder ?F44.9 - Dissociative and conversion disorder, unspecified (ICD-10) Complicated UTI (urinary tract infection) ?N39.0 - Urinary tract infection, site not specified (ICD-10) Anxiety ?F41.9 - Anxiety disorder, unspecified (ICD-10) On home O2 ?Z99.81 - Dependence on supplemental oxygen (ICD-10) Asthma ?J45.909 - Unspecified asthma, uncomplicated (ICD-10) Esophageal reflux ?K21.9 - Gastro-esophageal reflux disease without esophagitis (ICD-10) Herniation of cervical intervertebral disc ?M50.20 - Other cervical disc displacement, unspecified cervical region (ICD-10) CAD (coronary artery disease) ?I25.10 - Atherosclerotic heart disease of [place] coronary artery without angina pectoris (ICD-10) Nocturnal epilepsy ?G40.909 - Epilepsy, unspecified, not intractable, without status epilepticus (ICD-10) Hypertension ?I10 - Essential (primary) hypertension (ICD-10) Parkinson disease ?G20.A1 - Parkinson's disease without dyskinesia, without mention of fluctuations (ICD-10) Osteopenia ?M85.80 - Other specified disorders of bone density and structure, unspecified site (ICD-10) Vitamin B 12 deficiency ?E53.8 - Deficiency of other specified B group vitamins (ICD-10) Achlorhydria ?K31.83 - Achlorhydria (ICD-10) Moderate episode of recurrent major depressive disorder ?F33.1 - Major depressive disorder, recurrent, moderate (ICD-10) Allergic rhinitis ?J30.9 - Allergic rhinitis, unspecified (ICD-10) Vocal cord dysfunction ?J38.3 - Other diseases of vocal cords (ICD-10) Asymmetric SNHL (sensorineural hearing loss) ?H90.3 - Sensorineural hearing loss, bilateral (ICD-10) RLS (restless legs syndrome) ?G25.81 - Restless legs syndrome (ICD-10) Chronic pain of both shoulders ?M25.511 - Pain in right shoulder (ICD-10) ?M25.512 - Pain in left shoulder (ICD-10) ?G89.29 - Other chronic pain (ICD-10) Stable angina pectoris ?I20.89 - Other forms of angina pectoris (ICD-10) Chronic respiratory failure with hypoxia ?J96.11 - Chronic respiratory failure with hypoxia (ICD-10) Refusal of blood transfusion for reasons of conscience ?Z53.1 - Procedure and treatment not carried out because of patient's decision for reasons of belief and group pressure (ICD-10) Generalized anxiety disorder ?F41.1 - Generalized anxiety disorder (ICD-10) PSVT (paroxysmal supraventricular tachycardia) ?I47.10 - Supraventricular tachycardia, unspecified (ICD-10) Heartburn ?R12 - Heartburn (ICD-10) Chronic diarrhea ?K52.9 - Noninfective gastroenteritis and colitis, unspecified (ICD-10) COPD (chronic obstructive pulmonary disease) ?J44.9 - Chronic obstructive pulmonary disease, unspecified (ICD-10) Acute on chronic diastolic (congestive) heart failure ?I50.33 - Acute on chronic diastolic (congestive) heart failure (ICD-10) Severe persistent asthma with acute exacerbation ?J45.51 - Severe persistent asthma with (acute) exacerbation (ICD-10) Controlled type 2 diabetes mellitus without complication, with long-term current use of insulin ?E11.9 - Type 2 diabetes mellitus without complications (ICD-10) ?Z79.4 - ocean transportation intermediary (current) use of insulin (ICD-10) Lung nodule seen on imaging study ?R91.1 - Solitary pulmonary nodule (ICD-10) Intractable migraine without status migrainosus ?G43.919 - Migraine, unspecified, intractable, without status migrainosus (ICD-10) BOB (obstructive sleep apnea) ?G47.33 - Obstructive sleep apnea (adult) (pediatric) (ICD-10) Osteoarthritis ?M19.90 - Unspecified osteoarthritis, unspecified site (ICD-10) Frequent falls ?R29.6 - Repeated falls (ICD-10) Weakness ?R53.1 - Weakness (ICD-10) Encephalopathy ?G93.40 - Encephalopathy, unspecified (ICD-10) Surgical History Hx of tubal ligation ?Z98.51 - Tubal ligation status (ICD-10) S/P total abdominal hysterectomy ?Z90.710 - Acquired absence of both cervix and uterus (ICD-10) Hx of tonsillectomy ?Z90.89 - Acquired absence of other organs (ICD-10) Status post creation of urethral sling by suprapubic approach ?Z98.890 - Other specified postprocedural states (ICD-10) H/O dilation and curettage ?Z98.890 - Other specified postprocedural states (ICD-10) History of coronary artery stent placement ?Z95.5 - Presence of coronary angioplasty implant and graft (ICD-10) H/O cervical discectomy ?Z98.890 - Other specified postprocedural states (ICD-10) History of carpal tunnel release ?Z98.890 - Other specified postprocedural states (ICD-10) H/O adenoidectomy ?Z90.89 - Acquired absence of other organs (ICD-10) History of Andrea-en-Y gastric bypass ?Z98.84 - Bariatric surgery status (ICD-10) History of cholecystectomy ?Z90.49 - Acquired absence of other specified parts of digestive tract (ICD-10) Social History Smoking Status: Former smoker Do you use any of these nicotine containing products: None Second hand tobacco smoke exposure: No How often do you have a drink containing alcohol: never AUDIT-C Alcohol total score: 0 Non-prescribed substance use: denies use service: No Exam Narrative: Exam Narrative: Her morbidly obese patient in no acute distress. Alert and oriented x3. Patient speaks in full sentences without needing to catch her breath. HEENT: Normocephalic atraumatic. Pupils are equally round reactive to light. Extraocular muscles are intact. Conjunctivae are moist without any icterus noted. Moist mucous membranes. Cardiovascular: Heart is regular rate and rhythm. Lungs: Clear to auscultation bilaterally. Abdomen: Soft with normal bowel sounds, obese. Extremities: Left arm has normal appearance. No erythema or evidence of infection. She has extreme reaction to gental touch to the skin of the entire extremity. Skin: Well perfused without any obvious rashes. Const: Vital Signs, click to edit/add: Vital Signs - 24 hr 05/06/24 21:35 Temperature 97.1 F L Pulse Rate [Pulse Oximeter] 70 Respiratory Rate 18 Blood Pressure [Ri ght Forearm] 140/73 H Pulse Oximetry 92 Oxygen Delivery Me thod Nasal Cannula Oxygen Flow Rate 3 Course Course ED Course: Patient is requesting to be admitted for IV pain medication Vital Signs Vital signs: Initial Vital Signs Temperature 97.1 F L 05/06/24 21:35 Temperature Source Temporal Artery Scan 05/06/24 21:35 Pulse Rate 70 05/06/24 21:35 Pulse Rhythm Regular 05/06/24 21:35 Respiratory Rate 18 05/06/24 21:35 Blood Pressure 140/73 H 05/06/24 21:35 Blood Pressure Mean 95 05/06/24 21:35 Blood Pressure Position Supine 05/06/24 21:35 Pulse Oximetry 92 05/06/24 21:35 Oxygen Delivery Method Nasal Cannula 05/06/24 21:35 Oxygen Flow Rate 3 05/06/24 21:35 Vital Signs Temperature 97.1 F L 05/06/24 21:35 Pulse Rate 70 05/06/24 21:35 Respiratory Rate 18 05/06/24 21:35 Blood Pressure 140/73 H 05/06/24 21:35 Pulse Oximetry 92 05/06/24 21:35 Oxygen Delivery Method Nasal Cannula 05/06/24 21:35 Oxygen Flow Rate 3 05/06/24 21:35 Temperature 97.1 F L 05/06/24 21:35 Pulse Rate 70 05/06/24 21:35 Respiratory Rate 18 05/06/24 21:35 Blood Pressure 140/73 H 05/06/24 21:35 Pulse Oximetry 92 05/06/24 21:35 Oxygen Delivery Method Nasal Cannula 05/06/24 21:35 Oxygen Flow Rate 3 05/06/24 21:35 Medical Decision Making MDM Narrative Medical decision making narrative: 73-year-old female with chronic pain. I did give her a dose of oral tramadol in the ER today we discussed that we will not be admitting her for IV pain medication at this time. I am concerned that she is exhibiting drug-seeking behaviors. She is discharged back to the assisted living at this time. Discharge Plan Discharge Clinical Impression: Chronic pain Patient Disposition: Home, Self-Care Condition: Unchanged Additional Instructions: I recommend that you establish care with a pain clinic. Prescriptions: No Action torsemide 20 mg tablet 20 mg PO DAILY prednisone 5 mg tablet 5 mg PO DAILY clopidogrel 75 mg tablet 75 mg PO QAM nitroglycerin 0.4 mg tablet, sublingual 0.4 mg sublingual montelukast 10 mg tablet 10 mg PO QPM lisinopril 2.5 mg tablet 2.5 mg PO DAILY Gemtesa 75 mg tablet 75 mg PO DAILY levetiracetam [Keppra] 250 mg tablet 250 mg PO BID solifenacin [Vesicare] 10 mg tablet 10 mg PO DAILY albuterol 90 mcg/actuation aerosol 2.5 mcg inhalation Follow Up/Referrals: Mary Tao MD [Primary Care Provider] - Stand Alone Forms: Line[employer] Info Instructions
[2024-05-06] MEDS: TRAMADOL HCL 50 MG TABLET PO (22:16)
== END 2024-05-06 22:15 | disposition home or self-care (01) ==
PROVIDERS: Emergency Provider Family Medicine; PCP Family Medicine
DX: G89.29 Other chronic pain (principal)
CPT/HCPCS: 99283; 99284; A9270